=== PATIENT | female | born 1960 | race Caucasian/White ===

== ENCOUNTER → 2017-09-20 10:55 | Outpatient (CLI) | payer OTHER, SELFPAY ==
--- NOTE | 2017-09-20 | DI.MG.S_ITS ---
BILATERAL DIGITAL SCREENING MAMMOGRAM 3D/2D WITH CAD: 09/20/2017 CLINICAL: Routine screening. Family history of breast cancer. Comparison is made to exams dated: 06/01/2016 mammogram, 05/22/2015 mammogram, and 03/19/2014 mammogram - [facility]. There are scattered fibroglandular elements in both breasts. Current study was also evaluated with a Computer Aided Detection (CAD) system. No significant masses, calcifications, or other findings are seen in either breast. There has been no significant interval change. IMPRESSION: NEGATIVE There is no mammographic evidence of malignancy. A 1 year screening mammogram is recommended. This exam was interpreted at Station ID: [id number]. NOTE: For mammograms, a report in lay terms will be sent to the patient. Approximately 15% of breast malignancies will not be visualized mammographically. In the management of a palpable breast mass, a negative mammogram must not discourage biopsy of a clinically suspicious lesion. Electronically Signed By: Teddy perez/tania:09/21/2017 08:51:38 letter sent: Normal Exam ACR BI-RADS Category 1: Negative 3341F
== END ==
PROVIDERS: PCP Family Medicine; Visit Provider Family Medicine
DX: Z12.31 Encounter for screening mammogram for malignant neoplasm of breast (principal); Z80.3 Family history of malignant neoplasm of breast
CPT/HCPCS: 77063; 77067

== ENCOUNTER → 2017-12-27 10:04 | Outpatient (CLI) | payer OTHER, SELFPAY ==
--- NOTE | 2017-12-27 | DI.MRI.S_ITS ---
PROCEDURE: MR SHOULDER LT WO CON INDICATIONS: LEFT SHOULDER PAIN TECHNIQUE: Noncontrast oblique coronal T2 fast spin echo with fat saturation, oblique sagittal T1 spin echo and T2 fast spin echo with fat saturation, axial T1 spin echo and T2 fast spin echo with fat saturation through the shoulder. COMPARISON: [facility], MR, UPPER EXT.JOINT WITHOUT CONTRA, 08/26/2009, 10:59. [facility], CR, XR SHOULDER 2+ VIEWS LEFT, 12/13/2017, 9:21. FINDINGS: Image quality: Excellent. Rotator cuff: Mild T2 signal alteration throughout the supraspinatus and infraspinatus tendons at the humeral insertion site is present there is a small region of fluid signal intensity within the mid/posterior supraspinatus tendon articular surface at the humeral insertion site. The supraspinatus, infraspinatus, and subscapularis tendons otherwise appear intact throughout. Sagittal images demonstrate no muscle atrophy. Bones and bursae: No bone marrow contusions or fractures. Severe periarticular osteophyte formation at the glenohumeral joint. Severe irregular articular cartilage loss at the glenohumeral interface. Moderate acromioclavicular joint degeneration. The acromion demonstrates conventional anatomy, without an os acromiale. No pathologic subacromial-subdeltoid or subcoracoid bursal fluid is present. Capsule and soft tissues: There is diffuse degenerative glenoid labral tearing present. The long head of the biceps tendon demonstrates normal location and morphology. There is moderate fluid within the bicipital groove. The rotator interval appears normal, without fibrosis. The coracohumeral ligament is normal in thickness. IMPRESSION: 1. Supraspinatus and infraspinatus tendinopathy with small superimposed low-grade partial-thickness articular surface tear of the supraspinatus tendon. 2. Severe glenohumeral joint osteoarthritis with associated articular cartilage loss. 3. Acromioclavicular joint osteoarthritis. 4. Diffuse degenerative glenoid labral tearing. 5. Bicipital tendinitis. Dictated by: Esme Adkins M.D. on 12/27/2017 at 13:16 Approved by: Esme Adkins M.D. on 12/27/2017 at 13:20
== END ==
PROVIDERS: PCP Family Medicine; Visit Provider Orthopaedic Surgery
DX: M75.112 Incomplete rotator cuff tear or rupture of left shoulder, not specified as traumatic (principal); M25.512 Pain in left shoulder; M75.22 Bicipital tendinitis, left shoulder; M19.012 Primary osteoarthritis, left shoulder; S43.492A Other sprain of left shoulder joint, initial encounter
CPT/HCPCS: 73221

== ENCOUNTER → 2018-10-03 11:12 | Outpatient (CLI) | payer OTHER, SELFPAY ==
--- NOTE | 2018-10-03 11:13 | DI.MG.S_ITS ---
BILATERAL DIGITAL SCREENING MAMMOGRAM 3D/2D WITH CAD: 10/03/2018 CLINICAL: Routine screening. Family history of breast cancer. Comparison is made to exams dated: 09/20/2017 mammogram, 06/01/2016 mammogram, and 05/22/2015 mammogram - [facility]. There are scattered fibroglandular elements in both breasts. Current study was also evaluated with a Computer Aided Detection (CAD) system. No significant masses, calcifications, or other findings are seen in either breast. There has been no significant interval change. IMPRESSION: NEGATIVE There is no mammographic evidence of malignancy. A 1 year screening mammogram is recommended. This exam was interpreted at Station ID: [id number]. NOTE: For mammograms, a report in lay terms will be sent to the patient. Approximately 15% of breast malignancies will not be visualized mammographically. In the management of a palpable breast mass, a negative mammogram must not discourage biopsy of a clinically suspicious lesion. Electronically Signed By: Teddy perez/tania:10/03/2018 16:45:49 letter sent: Normal Exam ACR BI-RADS Category 1: Negative 3341F
== END ==
PROVIDERS: PCP Family Medicine; Visit Provider Family Medicine
DX: Z12.31 Encounter for screening mammogram for malignant neoplasm of breast (principal); Z80.3 Family history of malignant neoplasm of breast
CPT/HCPCS: 77063; 77067

== ENCOUNTER → 2019-10-13 09:27 | Outpatient (CLI) | payer OTHER, SELFPAY ==
[2019-10-13 10:48] LABS: Add Manual Diff / Slide Review NO; Basophils Absolute Auto 100 /uL (0-100); Basophils Percent Auto 1.3 % (0-2); Eosinophils Absolute Auto 100 /uL (0-450); Eosinophils Percent Auto 2.2 % (2-4); Hemoglobin 14.2 g/dL (12.0-16.0); Lymphocytes Absolute Auto 1200 /uL (1100-4500); Lymphocytes Percent Auto 21.3 % (25-40); Mean Corpuscular HGB Conc 32.4 % (30-36); Mean Corpuscular Hemoglobin 29.9 PG (26-34); Mean Corpuscular Volume 92.3 fL (80-100); Monocytes Absolute Auto 400 /uL (0-900); Monocytes Percent Auto 6.6 % (3-14); Neutrophils Absolute Auto 4000 /uL (1500-7000); Neutrophils Percent Auto 68.6 % (50-75); Platelet Count 281 X10^3/uL (150-400); Red Blood Cell Count 4.77 X10^6/uL (4.0-5.2); Red Cell Distribution Width 13.8 % (11.6-14.8); White Blood Cell Count 5.8 X10^3/uL (4.5-11.0)
[2019-10-13 10:57] LABS: Hemoglobin A1C% w Est Avg Glu 5.5 % (4.0-6.0)
[2019-10-13 11:02] LABS: Alanine Aminotransferase 25 IU/L (<35); Albumin 4.5 g/dL (3.5-5.0); Albumin Globulin Ratio 1.8 (1.0-2.8); Alkaline Phosphatase 66 U/L (38-126); Aspartate Aminotransferase 30 IU/L (14-36); BUN Creatinine Ratio 30.1 (6-22); Bilirubin Total 0.5 mg/dL (0.2-1.3); Blood Urea Nitrogen 22 mg/dL (7-17); Calcium 9.8 mg/dL (8.4-10.2); Carbon Dioxide 29 mmol/L (22-32); Chloride 104 mmol/L (98-107); Cholesterol 183 mg/dL (140-199); Estimated Glomerular Filt Rate > 60.0 mL/min (>60); Globulin 2.5 g/dL (1.7-4.1); Glucose 87 mg/dL (70-100); HDL Cholesterol 61 mg/dL (40-60); HEMOLYSIS < 15 (0-50); LDL Cholesterol Calculated 108 mg/dL (<100); Potassium 4.5 mmol/L (3.4-5.1); Sodium 139 mmol/L (137-145); Triglycerides 69 mg/dL (35-150)
== END ==
PROVIDERS: PCP Family Medicine; Referring Provider Family Medicine; Visit Provider Family Medicine
DX: Z13.0 Encounter for screening for diseases of the blood and blood-forming organs and certain disorders involving the immune mechanism (principal); Z13.1 Encounter for screening for diabetes mellitus; Z13.220 Encounter for screening for lipoid disorders; Z13.29 Encounter for screening for other suspected endocrine disorder
CPT/HCPCS: 36415; 80053; 80061; 83036; 84443; 85025

== ENCOUNTER → 2019-11-20 16:29 | Outpatient (CLI) | payer OTHER, SELFPAY ==
--- NOTE | 2019-11-20 | DI.MG.S_ITS ---
BILATERAL DIGITAL SCREENING MAMMOGRAM 3D/2D WITH CAD: 11/20/2019 CLINICAL: Routine screening. Family history of breast cancer. Comparison is made to exams dated: 10/03/2018 mammogram, 09/20/2017 mammogram, and 06/01/2016 mammogram - [facility]. There are scattered fibroglandular elements in both breasts. Current study was also evaluated with a Computer Aided Detection (CAD) system. No significant masses, calcifications, or other findings are seen in either breast. There has been no significant interval change. IMPRESSION: NEGATIVE There is no mammographic evidence of malignancy. A 1 year screening mammogram is recommended. This exam was interpreted at Station ID: [id number]. NOTE: For mammograms, a report in lay terms will be sent to the patient. Approximately 15% of breast malignancies will not be visualized mammographically. In the management of a palpable breast mass, a negative mammogram must not discourage biopsy of a clinically suspicious lesion. Electronically Signed By: Sincere ryan/tania:11/20/2019 17:49:58 letter sent: Normal Exam ACR BI-RADS Category 1: Negative 3341F
== END ==
PROVIDERS: PCP Family Medicine; Referring Provider Family Medicine; Visit Provider Family Medicine
DX: Z12.31 Encounter for screening mammogram for malignant neoplasm of breast (principal); Z80.3 Family history of malignant neoplasm of breast
CPT/HCPCS: 77063; 77067

== ENCOUNTER → 2020-02-26 09:38 | Outpatient (CLI) | payer OTHER, SELFPAY ==
--- NOTE | 2020-02-26 | DI.MRI.S_ITS ---
PROCEDURE: MR SHOULDER LT WO CON INDICATIONS: Impingement syndrome of left shoulder TECHNIQUE: Noncontrast oblique coronal T2 fast spin echo with fat saturation, oblique sagittal T1 spin echo and T2 fast spin echo with fat saturation, axial T1 spin echo and T2 fast spin echo with fat saturation through the shoulder. COMPARISON: [facility], MR, MR SHOULDER LT WO CON, 12/27/2017, 10:54. FINDINGS: Image quality: Excellent. Rotator cuff: Tendinosis and moderate grade articular and bursal surface partial thickness tear involving distal supraspinatus is seen at its insertion on humeral head extending to musculotendinous junction. Distal infraspinatus tendinosis is seen. Tendinosis and low-grade partial-thickness tear involving superior fibers of distal subscapularis is noted. No full-thickness rotator cuff tendon rupture. Sagittal images demonstrate no significant muscle atrophy. Bones and bursae: There is no fracture or dislocation. Moderate acromioclavicular joint osteoarthritic changes are seen with small to moderate amount of fluid distending joint capsule. The acromion demonstrates conventional anatomy, without an os acromiale. Small subacromial subdeltoid bursal fluid is seen. Moderate to severe glenohumeral joint osteoarthritic changes also seen with significant joint space narrowing, subchondral sclerosis and mild edema and prominent inferior osteophyte formation. Capsule and soft tissues: In the absence of intra-articular contrast, there is global signal abnormality throughout anterior labrum concerning for extensive anterior labral tear. The glenohumeral ligaments appear intact. The long head of the biceps tendinosis and low to moderate grade partial-thickness tear is seen. The rotator interval appears normal, without fibrosis. The coracohumeral ligament is normal in thickness. IMPRESSION: 1. Moderate acromioclavicular joint and glenohumeral joint osteoarthritic changes as above. Small to moderate amount of joint effusion. Small subacromial subdeltoid bursal fluid. 2. Tendinosis and moderate grade articular and bursal surface partial thickness tear involving distal supraspinatus extending to musculotendinous junction. Distal infraspinatus and subscapularis tendinosis. No full-thickness rotator cuff tendon rupture. 3. Suggestion of extensive anterior labral tear. 4. Proximal intra-articular portion of long head of biceps tendinosis and moderate grade partial-thickness tear. Dictated by: Berto Baker M.D. on 02/26/2020 at 11:38 Approved by: Berto Baker M.D. on 02/26/2020 at 11:45
== END ==
PROVIDERS: PCP Family Medicine; Referring Provider Orthopaedic Surgery; Visit Provider Orthopaedic Surgery
DX: M75.42 Impingement syndrome of left shoulder (principal); M19.012 Primary osteoarthritis, left shoulder
CPT/HCPCS: 73221

== ENCOUNTER → 2020-04-19 13:40 | Outpatient (CLI) | payer OTHER, SELFPAY ==
[2020-04-19 16:26] LABS: Add Manual Diff / Slide Review NO; Basophils Absolute Auto 100 /uL (0-100); Eosinophils Absolute Auto 200 /uL (0-450); Eosinophils Percent Auto 2.4 % (2-4); Hematocrit 42.1 % (36-46); Hemoglobin 13.7 g/dL (12.0-16.0); Lymphocytes Absolute Auto 1900 /uL (1100-4500); Lymphocytes Percent Auto 27.4 % (25-40); Mean Corpuscular HGB Conc 32.5 % (30-36); Mean Corpuscular Hemoglobin 29.8 PG (26-34); Mean Corpuscular Volume 91.6 fL (80-100); Monocytes Absolute Auto 400 /uL (0-900); Monocytes Percent Auto 6.1 % (3-14); Neutrophils Absolute Auto 4300 /uL (1500-7000); Neutrophils Percent Auto 63.1 % (50-75); Platelet Count 253 X10^3/uL (150-400); Red Cell Distribution Width 13.4 % (11.6-14.8); White Blood Cell Count 6.9 X10^3/uL (4.5-11.0)
[2020-04-19 16:37] LABS: BUN Creatinine Ratio 27.9 (6-22); Blood Urea Nitrogen 19 mg/dL (7-17); Calcium 9.6 mg/dL (8.4-10.2); Carbon Dioxide 31 mmol/L (22-32); Chloride 105 mmol/L (98-107); Estimated Glomerular Filt Rate > 60.0 mL/min (>60); Glucose 81 mg/dL (70-100); HEMOLYSIS < 15 (0-50); Potassium 3.7 mmol/L (3.4-5.1); Sodium 140 mmol/L (137-145)
== END ==
PROVIDERS: PCP Family Medicine; Referring Provider Family Medicine; Visit Provider Family Medicine
DX: Z01.810 Encounter for preprocedural cardiovascular examination (principal); Z01.812 Encounter for preprocedural laboratory examination
CPT/HCPCS: 36415; 80048; 85025; 93005; 93010

== ENCOUNTER → 2020-04-22 15:28 | Outpatient (CLI) | payer OTHER, SELFPAY ==
[2020-04-22 16:38] LABS: COVID19 -Nasal RAPID Negative (Negative)
== END ==
PROVIDERS: PCP Family Medicine; Visit Provider Physician Assistant
DX: Z20.822 Contact with and (suspected) exposure to COVID-19 (principal)
CPT/HCPCS: 87635

== ENCOUNTER 2020-04-25 09:53 | Inpatient (IN) | payer OTHER, SELFPAY ==
[2020-04-25] VITALS (13 sets, daily range): BP systolic 97–127; BP diastolic 47–79; PULSE 72–101; RESP 15–92; TEMP 36.1–36.9; O2SAT 18–99; BMI 32.3
--- NOTE | 2020-04-25 10:27 | DI.RAD.S_ITS ---
PROCEDURE: XR SHOULDER LT MIN 2V INDICATIONS: post op TSA TECHNIQUE: 2 views of the shoulder were acquired. COMPARISON: None. FINDINGS: Bones: Patient is status post left shoulder arthroplasty. Shoulder alignment is anatomic. No fractures or dislocations. No suspicious bony lesions. Visualized ribs appear intact. Soft tissues: There are expected postsurgical changes seen in left shoulder soft tissue. IMPRESSION: Postop changes from left shoulder arthroplasty with anatomic alignment. Dictated by: Berto Baker M.D. on 04/25/2020 at 14:51 Approved by: Berto Baker M.D. on 04/25/2020 at 14:52
[2020-04-25] MEDS: ACETAMINOPHEN 325 MG TABLET 975 MG PO ×2 (11:15→22:25)
[2020-04-25] MEDS: MELOXICAM 7.5 MG TABLET 15 MG PO (11:15)
[2020-04-25] MEDS: LACTATED RINGERS 1,000 ML 42 ML IV ×2 (11:16→14:17)
[2020-04-25] MEDS: PREGABALIN 75 MG CAPSULE PO (11:16)
[2020-04-25] MEDS: VANCOMYCIN 1,000 MG/200 ML PIGGYBACK 200 MG IV ×2 (11:19→22:14)
--- NOTE | 2020-04-25 11:22 | PM.PREOP ---
Pre-operative Note COVID-19 COVID-19 status: Negative Result date/Date tested (Pos, Neg/Pending): 04/23/20 Interval Note History & Physical reviewed/Exam performed by Physician: Yes Changes to H&P: No
[2020-04-25] MEDS: MIDAZOLAM 2 MG/2 ML VIAL IV (11:45)
--- NOTE | 2020-04-25 11:56 | SUR.PREOP ---
Block start time [1149] . Monitoring initiated and maintained throughout procedure. Oxygen and medications given per anesthesiologist instructions. Patient remained stable throughout procedure, no adverse reactions noted. Block end time [1153].
[2020-04-25] MEDS: GENTAMICIN 200 MG in SODIUM CHLORIDE 0.9% 100 ML 105 ML IV (12:23)
--- NOTE | 2020-04-25 12:36 | SUR.OPER ---
Beach chair with skytron shoulder positioner. Lower body on padded OR bed. Head in foam padded head cradle, secured with straps. Non-operative arm secured <90 degrees abduction. Pillow under knees. Safety belt at thigh. Cloth tape over blanket over lower legs.
[2020-04-25] MEDS: LIDOCAINE 1% W/EPI 20 ML INJ (12:44)
[2020-04-25] MEDS: BUPIVACAINE 0.25% W/ EPI (PF) 10 ML VIAL 20 ML INJ (12:49)
--- NOTE | 2020-04-25 13:51 | P.PCN_ITS ---
Procedures Date/Time Date of procedure: 04/25/20 Time of procedure: 11:50 Nerve Block Time out performed: Yes Local anesthetic used: other (15mL 0.5opivacaine, 5mL 2* idocaine) Location of anesthetic used: interscalene Amount of anesthesia used (mL): 20 Nerve blocks: brachial plexus (interscalene) Procedure successful: Yes Patient tolerated procedure: well Complications: none Additional comments: Brachial plexus nerve block for post operative pain management. Risks and benefits discussed, including bleeding, infection, intravascular injection, nerve damage, block failure. Standard ASA monitors, NC O2. Pt supine. Chloroprep site preparation, sterile technique. Brachial plexus identified with US guidance, traced from supraclavicular to interscalene. 1mL 2% lidocaine skin wheal. 22g x 50mm Pajunk advanced with in-plane US guidance to brachial plexus. Negative aspiration. LA injected with intermittent negative aspiration. Good LA spread noted on US. No pain, no paraesthesia. Pt tolerated procedure well. Vital signs stable.
--- NOTE | 2020-04-25 14:05 | P.OP_ITS ---
Operative Date/Time/Diagnoses Date of procedure: 04/25/20 Time of procedure: 14:05 Pre-op diagnosis: Left end-stage arthritis shoulder Post-op diagnosis: same Procedure & Clinicians Procedure: Left total shoulder arthroplasty Same procedure as scheduled: Yes Indications: Left end-stage arthritis shoulder Surgeon: Arsenio Wellington Internal Medicine Physician Assistant: Rupa Rothman Click Yes if Unassisted: No Anesthesia Type: General and Peripheral nerve block Operative Notes Findings: End-stage arthritic changes to the glenohumeral joint with complete loss of cartilage and anterior and inferior osteophytes around the humeral head. No sign of any high-riding humeral head no sign of any full-thickness rotator cuff tear. Closure Type: primary Specimen(s): none sent Applied: implant(s) (Arthrex medium glenoid with a 47 x 20 eclipse humeral head a 47 trunnion and a medium cage screw) Estimated Blood Loss (mL): 100 Procedure in detail: On date of service, Patient was met in the holding area. The operative site was signed and witnessed by the OR staff. The surgeries once again discussed with the patient and any remaining questions they had were answered fully. Patient was taken back to the operating theater and placed on the operating table in a supine position. Great care was taken to ensure that all bony prominences were properly padded. Patient was then placed into the beach chair position. The head and neck were properly positioned and secured. A timeout was performed verifying patient's name, procedure, and the operative site. The upper extremity was then prepped and draped in the normal sterile fashion. Previously, the bony anatomy and incision were marked out as well as injected with Marcaine with epinephrine. A deltopectoral approach was performed. 10 blade was used to incise the skin and fascial tissue. A deep knife was used to continue sharp dissection until the cephalic vein was visualized. The cephalic vein was dissected free allowing us to expose the deltopectoral interval. This interval was then developed. A Masters elevator was used to free up the deltoid of any scarring both superficially as well as deeply. The vein and the deltoid were taken laterally while the pectoralis was taken medially. This gave us good visualization of the strap muscles. The clavipectoral fascia was removed and the strap muscles were then retracted medially with the pectoralis. This gave us stabilization of the subsca pularis. The circumflex vessels were ligated and the subscapularis was sharply excised off the lesser tuberosity and then tagged. Once the subscapularis was released we're able to dislocate the shoulder. Patient had end-stage arthritic changes to the humeral head as well as the glenoid with large osteophytes anterior inferiorly as well as posteriorly. A Ronger was then used to remove the osteophytes. Next, cutting guide was placed and a saw was used to remove the humeral head. Once the head was removed it was templated. A trunnion with size and impacted on the humeral cut surface center impactor was placed and then passed it into place. S this was then removed. A protector placed for the osteotomy was then placed and and we turned our attention back to the subscapularis as well as the glenoid. The subscapularis was freed up and a 360? fashion. The degenerative anterior and inferior capsular tissue was removed. This was followed by removing the degenerative labral tissue from around the glenoid as well as the biceps insertion. This gave us good visualization of the glenoid. Glenoid trials were used until we found the appropriate fit and curvature. Next the center hole was drilled followed by reaming of the glenoid. The wound was copiously irrigated after reaming. Next the pegs were drilled and a trial glenoid was impacted into place. Once we were satisfied with the preparation of the glenoid, the final component was cemented into place. This was followed by impaction. We Return to our attention back to the humerus. The protector plate was removed. The 47 mm trunnion was impacted into place in the cage screw was inserted to the appropriate depth and tightness. next trial heads were trialed and a 47 x 20 gave us the best fit and stability. Shoulder was taken through range of motion and had very good stability with external rotation and internal rotation with the arm abducted to 90? as well as forward flexion and external rotation and internal rotation with the arm at the side. Bone tunnels were made into the humeral neck. #2 FiberWire were passed through the bone tunnels for eventual subscapularis repair. The final head were impacted into place and the shoulder was reduced. It was taken through range of motion and was felt to be stable in both posterior translation as well as external and internal rotation with abduction. The subscapularis was repaired back to the lesser tuberosity through the bone tunnels. This was then reinforced with soft tissue repair. Part of the rotator interval was then closed. A drain was placed and the rest of the wound was closed in a layered fashion. The shoulder was then cleaned dried and dressed and the patient was taken to the PACU in stable condition. Patient will follow our postoperative protocol for total shoulder arthroplasty. Complications: none Post-operative Condition: stable Disposition: PACU Plan for aftercare: Patient follow our postoperative protocol for total shoulder arthroplasty
--- NOTE | 2020-04-25 15:42 | SUR.PHASEI ---
Pt transported to room 212 in stable condition. Bedside are report given to RENARD Anglin.
--- NOTE | 2020-04-25 15:53 | PT-IP ANOTE ---
Received PT orders at 1425 and reviewed chart but pt was not on the floor yet from PACU. Communicated with surgeon to clear the bedrest order. Pt arrived ~1545 but had not been assessed yet by nursing. Will see pt in the AM for PT evaluation.
[2020-04-25] MEDS: LACTATED RINGERS 1,000 ML 125 ML IV (16:38)
[2020-04-25] MEDS: ZOLPIDEM 5 MG TABLET PO (22:14)
[2020-04-25] MEDS: DOCUSATE 100 MG CAPSULE PO (22:14)
[2020-04-25] MEDS: HYDROCODONE/ACET 5/325 TABLET 2 TAB PO (23:36)
[2020-04-26] MEDS: OXYCODONE IR 10 MG TABLET PO ×3 (02:22→08:56)
--- NOTE | 2020-04-26 03:52 | PC.NURSE ---
At approx 0230, pt reported pain and swelling at IV site. Infusion of LR @ 125 stopped, IV site determined to be infiltrated. New IV insertion attempted x2, provider contacted and OKd d/c fluids and no IV access.
[2020-04-26 04:40] VITALS: BP 104/57; PULSE 72; RESP 18; TEMP 36.4; O2SAT 96
[2020-04-26 05:28] LABS: Hematocrit 35.5 % (36-46); Hemoglobin 11.8 g/dL (12.0-16.0); Mean Corpuscular HGB Conc 33.2 % (30-36); Mean Corpuscular Hemoglobin 29.7 PG (26-34); Mean Corpuscular Volume 89.5 fL (80-100); Platelet Count 241 X10^3/uL (150-400); Red Blood Cell Count 3.97 X10^6/uL (4.0-5.2); Red Cell Distribution Width 13.2 % (11.6-14.8); White Blood Cell Count 10.5 X10^3/uL (4.5-11.0)
--- NOTE | 2020-04-26 07:17 | PM.DS.1 ---
History of Present Illness History of Present Illness Date Patient Seen: 04/26/20 Time Patient Seen: 07:17 Chief complaint: INPT Narrative: Pain is [id number]. Denies fever chills. No nausea vomiting. Patient has her home to assist her. Otherwise without complaints. Discharge Providers Provider Date of admission: 04/25/20 09:53 Discharge Date: 04/26/20 Primary care physician: Gemini Deleon MD Consults: 04/25/20 14:00 Consult to Discharge Planning Routine Comment: Consult to Physical Therapy Evaluate & Treat Comment: Physician Instructions: Evaluate and Treat Consult to Respiratory Therapy Evaluate & Treat Comment: Physician Instructions: Evaluate and treat Discharge provider: Toney Calixto PA-C Summary Hospital Course Discharge Diagnosis: Left end-stage arthritis shoulder Hospital Course: Procedure: Left total shoulder arthroplasty Same procedure as scheduled: Yes Indications: Left end-stage arthritis shoulder Surgeon: Arsenio Wellington [employer] Custodian: Rupa Rothman Click Yes if Unassisted: No Anesthesia Type: General and Peripheral nerve block Operative Notes Findings: End-stage arthritic changes to the glenohumeral joint with complete loss of cartilage and anterior and inferior osteophytes around the humeral head. No sign of any high-riding humeral head no sign of any full-thickness rotator cuff tear. Closure Type: primary Specimen(s): none sent Applied: implant(s) (Arthrex medium glenoid with a 47 x 20 eclipse humeral head a 47 trunnion and a medium cage screw) Estimated Blood Loss (mL): 100 Patient status post left total shoulder arthroplasty. Patient is stable. Discharge home today after physical therapy put Status at Discharge Cognitive/behavioral status at discharge: at baseline, oriented Functional status at discharge: independent ambulation Overall status at discharge: patient is progressing back to baseline Time Spent with Patient Time spent: Less than 30 minutes Exam Vital Signs (past 8 hours): - 04/25/20 23:35 04/25/20 23:55 04/26/20 04:40 Temperature 97.9 F 97.6 F Pulse Rate 89 72 Respiratory Rate 17 18 Blood Pressure 97/47 L 108/69 104/57 L Pulse Oximetry 96 96 Oxygen Delivery Method Room Air Oxygen Flow Rate 0 Narrative Exam Narrative: 59-year-old female resting comfortably in bed in no apparent distress. Left shoulder dressing is clean, dry and intact. Drain output yesterday 130 mL. Sensation grossly intact distal left upper extremity. Motor functions intact distal left upper extremity. Objective Labs Result Diagrams: 04/26/20 05:15 Labs: Laboratory Results - last 24 hr 04/26/20 05:15 WBC 10.5 RBC 3.97 L Hgb 11.8 L Hct 35.5 L MCV 89.5 MCH 29.7 MCHC 33.2 RDW 13.2 Plt Count 241 PFSH Medical History Anesthesia Arthritis of glenohumeral joint Back pain (~2006) Migraines Normal colonoscopy (~2012) Partial tear of rotator cuff Shoulder impingement Shoulder pain (~2007) Surgical procedure planned (~2012) Surgical History History of carpal tunnel repair History of tonsillectomy Hx of cervical spinal arthrodesis Status post breast lumpectomy Status post breast reduction Status post hysterectomy Status post knee surgery Family History Father Age: 87 Emphysema/COPD Cancer Diabetes mellitus Heart disease Mother Age: 81 Diabetes mellitus Grandmother Breast cancer Social History household members: spouse and children Smoking Status: Former smoker alcohol intake: current Discharge Assessment & Plan Assessment and Plan Assessment: Postop day 1 status post left total shoulder arthroplasty. Patient progressing as expected. Plan of Treatment: Discharge home today in stable condition after physical therapy. Discharge Plan Discharge Plan Patient Disposition: Home Discharge orders & Medications Prescriptions: New acetaminophen 325 mg Tablet 975 mg PO TID PRN (Reason: Headache) Qty: 60 RF: 0 oxycodone 10 mg Tablet 10 mg PO Q3HR PRN (Reason: Pain, Severe (7-10)) Qty: 60 RF: 0 Continued fluticasone propionate 50 mcg/actuation spray,suspension 2 spray NASAL DAILY RF: 0 rizatriptan 10 mg tablet See Rx Instructions PO .COMPLEX Qty: 30 RF: 0 diclofenac sodium 75 mg tablet,delayed release (DR/EC) 75 mg PO BID Qty: 180 RF: 3 lamotrigine [Lamictal XR] 100 mg tablet extended release 24hr 100 mg PO QDAY Qty: 90 RF: 3 desonide 0.05 % lotion 0.05 % Topical DAILY PRN (Reason: itching) Qty: 60 RF: 5 gabapentin 300 mg capsule See Rx Instructions .ROUTE .COMPLEX Qty: 90 RF: 5 clobetasol 0.05 % ointment 1 applictn TOP BID Qty: 30 RF: 5 clobetasol 0.05 % solution 0.05 % Topical BID Qty: 50 RF: 5 estradiol [Estrace] 0.01 % (0.1 mg/gram) cream 1 gram VAG 3XW Qty: 42.5 RF: 4 fexofenadine 180 mg Tablet 180 mg PO DAILY RF: 0 diphenhydramine HCl [Benadryl] 25 mg Capsule 50 mg PO BEDTIME RF: 0 Follow up/Referrals: Gemini Deleon MD [Primary Care Provider] - Arsenio Wellington MD [Physician] - (Two weeks) Diet/Activity/Treatments Diet: Diet as Tolerated Activity: Per total shoulder protocol Cold/Heat Therapy: Ice to shoulder as needed Skin/Wound/Dressing Care Report to your healthcare provider any signs of infection, such as:: chills, fever, increased pain, unusual drainage and unusual redness Dressing: Keep clean and dry Visit Report/Discharge Packet Instructions: DI for Prescription Opioid Use, DI for Shoulder Replacement Stand Alone Forms: Surgery Discharge Discharge Data Primary Care Provider: Gemini Deleon Quality VTE Deep Vein Thrombosis/Pulmonary Embolism Present on Admission: No
[2020-04-26 07:35] VITALS: BP 118/60; PULSE 72; RESP 16; TEMP 36.9; O2SAT 99
[2020-04-26] MEDS: DOCUSATE 100 MG CAPSULE PO (08:56)
[2020-04-26] MEDS: GABAPENTIN 300 MG CAPSULE PO (08:56)
[2020-04-26] MEDS: LORATADINE 10 MG TABLET PO (08:56)
[2020-04-26] MEDS: INFLUENZA VACCINE 0.5 ML SYRINGE IM (09:03)
--- NOTE | 2020-04-26 10:41 | PT.IIE ---
Current Diagnoses Primary osteoarthritis, left shoulder (04/25/20) Unspecified osteoarthritis, unspecified site (04/25/20) Impingement syndrome of left shoulder (04/25/20) Surgery Performed Operation Date: 04/25/20 11:45 Actual Procedures p Total Shoulder Arthroplasty(Left) - Arsenio Wellington MD Surgical History (Last Reviewed 04/26/20 @ 07:20 by Toney Calixto PA-C) History of carpal tunnel repair History of tonsillectomy Hx of cervical spinal arthrodesis Status post breast lumpectomy Status post breast reduction Status post hysterectomy Status post knee surgery Medical History (Last Reviewed 04/26/20 @ 07:20 by Toney Calixto PA-C) Anesthesia Arthritis of glenohumeral joint Back pain (~2006) Migraines Normal colonoscopy (~2012) Partial tear of rotator cuff Shoulder impingement Shoulder pain (~2007) Surgical procedure planned (~2012) Physical Therapy Inpatient Evaluation/Re-Eval M1 PT/OT-IP Prior Functional Status Start: 04/25/20 14:36 Freq: NEEDED Status: Active Protocol: Document 04/26/20 10:26 (Rec: 04/26/20 10:41 [id number]) Medical Review Prior Functional Status Medical History Reviewed Yes Diet/Fluid Consistency Regular Communication no deficits noted able to make needs known Mobility and Gait independent for all mobility. unable to lift arm >90 degrees . Activities of Daily Living and IADL's difficulty reaching behind her back and put bra on/ jacket on. Hard to pull pants up. Significant pain during sleep Social History Household Members spouse,children Living Arrangements House Number of Floors (Floors) One Floor Number of Stairs To Enter/Railing? 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 They both work proofer but will be available to assist fully during weekends. Pt also has a neighbor to check on her if needed. M2 PT-IP Current Condition Start: 04/25/20 14:36 Freq: NEEDED Status: Active Protocol: Document 04/26/20 10:26 (Rec: 04/26/20 10:41 [id number]) Physical Therapy Current Condition Current Condition Evaluation Date 04/26/20 Treatment Diagnosis L TSA, difficulty for self care Onset Date 04/25/20 Precautions Shoulder Precautions Sling,PROM,Internal Rotation to Body,No External Rotation, No Abduction,Forward Flexion to 90 degrees,Pendulums Weight Bearing Status Weight Bearing Status Non-Weight Bearing M3 PT-IP Subjective Start: 04/25/20 14:36 Freq: NEEDED Status: Active Protocol: Document 04/26/20 10:26 (Rec: 04/26/20 10:41 [id number]) Subjective Physical Therapy Visit Type Type Initial Evaluation Visit Start Time 09:22 Visit Stop Time 09:50 Total Visit Minutes 28 Notes 0 Number of COMMERCIAL AIRLINE PILOT Visits 0 Physical Therapy Visit Comments Patient Comments Isabella getting up to bathroom couple times already Patient Goals to return home with family asssitance M4 PT-IP Mobility and Gait Start: 04/25/20 14:36 Freq: NEEDED Status: Active Protocol: Document 04/26/20 10:26 (Rec: 04/26/20 10:41 [id number]) PT-Bed Mobility Assessment Supine to Sit Supine to Sit Independent Sit to Supine Sit to Supine Independent Scooting Scooting to Edge of Bed Independent PT-Transfer Assessment Sit to and From Stand Sit to and from Stand Independent Equipment Transfer Assistive Device None Orthotic/Prosthetic Devices or Brace: No Transfers Transfer Destination Bed,Chair Transfer Technique Stand Step Pivot Transfer Ability Level of Assist Standby Assistance,Use of Upper Extremities Comments Mobility Comments pt was in bed upon PT arrival. C/o L shoulder pain 6/10 but agreeable to mobilize with PT. BP at 110/66. Pt completed supine to long sit followed by pivoting to R side of EOB independently. She stood up safely witohut UE push off. Then walked to sink counter for armsling fitting. Pt then c/o weakness/ nausea and requested to sit in chair. She rested 2 mins BP at 103/54 and was able to cont assessment. pt stood up then walked to hallway indepednently and completed 3 JASMINE with R rail safely. She then returned to room and requested to rest in bed d/t slight nausea. Call light placed within raech. notified RN. Gait Assessment Gait Gait Assistance Required: Independent Distance (Feet) 120 Able to Maintain Weight Bearing Status Yes During Gait Assistive Devices Assistive Device None Orthotic/Prosthetic Devices or Brace: Yes Gait Deviations General Gait Pattern Within Normal Limits Comments Gait Comments see mobility comments. Stair Climbing Assessment Evaluation Level of Assist On Stairs Independent Devices Stair Climbing Assistive Devices Right Railing Technique/Endurance Stair Climbing Direction Ascend and Descend Stair Climbing Technique Step Over Step Number of Steps Climbed 3 Query Text: Stair Climbing Set # Repetitions (reps) 1 PT-Balance Assessment Sitting Balance and Reactions Static Sitting Balance Ability Normal Dynamic Sitting Balance Ability Normal Standing Balance and Reactions Static Standing Balance Ability Normal Dynamic Standing Balance Ability Normal M5 PT-IP Objective Assessments Start: 04/25/20 14:36 Freq: NEEDED Status: Active Protocol: Document 04/26/20 10:26 (Rec: 04/26/20 10:41 [email or web address]) Orientation Orientation/Cognition Level of Alertness Alert Orientation Name,Age,Birthday,Month,Date, Year,Day of Week,Place, Situation Language Function Ability No Deficits Noted Safety Awareness Understands Safety Issues Memory Description No Deficits Noted Gross Range of Motion Upper Extremity ROM Assessment Left Impaired Impairments wrist , finger ROM = WNL Lower Extremity ROM Assessment Within Functional Limits Strength Upper Extremity Strength Assessment Left Impaired Wrist 4/5 Hand 4/5 Lower Extremity Strength Assessment Within Functional Limits Coordination Assessment Gross Coordination Gross Coordination WNL Sensation Assessment Sensation Gross Sensation WNL Muscle Tone Muscle Tone WNL Yes M6 PT-IP Treatment Start: 04/25/20 14:36 Freq: NEEDED Status: Active Protocol: Document 04/26/20 10:26 (Rec: 04/26/20 10:41 [email or web address]) Physical Therapy Treatment Exercises Exercises Shoulder Pendulums,Elbow Flexion/Extension,Wrist ROM, Hand ROM Education Education Provided Precautions,Weight Bearing Status,Post-Op Packet,Safety M7 PT-IP Assessment and Plan Start: 04/25/20 14:36 Freq: NEEDED Status: Active Protocol: Document 04/26/20 10:26 (Rec: 04/26/20 10:41 [email or web address]) PT Summary Assessment and Plan Potential Rehabilitation Potential Excellent Status of Condition at Evaluation Stable Summary Impairments Pain,ROM,Strength,Activity Tolerance Progress Towards Goals Safe For Discharge Assessment Summary This is a 59yo female s/p POD 1 L TSA. 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 independent for all mobility and ADLS/IADLS. CLOF= mobility = WFL, and educated pt post op protocol and therex. Pt completed all rehab goals but does feel nausea during session. Notified RN. Expect pt to DC home with family assistance. Frequency of Treatment Frequency Of Treatment Discharge Recommendations To Nursing Amount of Assist Needed Independent Discharge Recommendations PT Discharge Recommendations Home with Assistance, Outpatient PT Transportation Needs at Discharge Private Vehicle
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
--- NOTE | 2020-04-26 12:47 | PC.NURSE ---
Patient is discharging home now. Given percolone and helpful. Aquacel dressing cdi, with sling in place. here and going to take patient home. Paperwork gone over with both.
== END 2020-04-26 13:15 | disposition home or self-care (01) | DRG 483 ==
PROVIDERS: Admitting Provider Orthopaedic Surgery; PCP Family Medicine; Referring Provider Orthopaedic Surgery; Visit Provider Orthopaedic Surgery
PROC: 0RRK0JZ Replacement of Left Shoulder Joint with Synthetic Substitute, Open Approach (ICD-10-PCS; CPT 23472; principal; 2020-04-25 11:45)
DX: M19.112 Post-traumatic osteoarthritis, left shoulder (principal); M75.42 Impingement syndrome of left shoulder; Z87.891 Personal history of nicotine dependence
CPT/HCPCS: 36415; 64450; 73030; 85027; 90471; 90656; 97161; C1776; J1100; J2250; J2405; J2704; J3010; Q2038

== ENCOUNTER → 2021-01-27 08:07 | Outpatient (CLI) | payer OTHER, SELFPAY ==
[2020-04-25 10:04] VITALS: BMI 32.3
[2021-01-27 17:13] LABS: COVID19 -Nasal RAPID Negative (Negative)
== END ==
PROVIDERS: PCP Family Medicine; Referring Provider Obstetrics & Gynecology; Visit Provider Obstetrics & Gynecology
DX: Z20.822 Contact with and (suspected) exposure to COVID-19 (principal); Z01.812 Encounter for preprocedural laboratory examination
CPT/HCPCS: 87635

== ENCOUNTER 2021-01-28 12:16 | Day surgery (SDC) | payer OTHER, SELFPAY ==
[2020-04-25 10:04] VITALS: BMI 32.3
[2021-01-27 08:21] VITALS: BMI 34.5
[2021-01-28] VITALS (17 sets, daily range): BP systolic 89–127; BP diastolic 53–87; PULSE 62–92; RESP 10–22; TEMP 36.1–37.4; O2SAT 91–98; BMI 33.6
--- NOTE | 2021-01-28 12:38 | SUR.OPER ---
Lithotomy on padded OR bed, head on pillow, arms secured on padded arm boards at <90 degrees abduction. Legs secured in padded yellow fins stirrups.
[2021-01-28] MEDS: LACTATED RINGERS 1,000 ML 42 ML IV ×2 (12:42→14:11)
--- NOTE | 2021-01-28 13:09 | PM.PREOP ---
Pre-operative Note COVID-19 COVID-19 status: Negative Result date/Date tested (Pos, Neg/Pending): 01/27/21 Interval Note History & Physical reviewed/Exam performed by Physician: Yes Changes to H&P: No
[2021-01-28] MEDS: CEFAZOLIN 1 GM VIAL 2 GM IV (13:34)
[2021-01-28] MEDS: BUPIVACAINE 0.5% (PF) 30 ML, EPINEPHrine 0.15 MG INJ (13:36)
[2021-01-28] MEDS: SODIUM CHLORIDE 0.9% 50 ML INJ (13:42)
--- NOTE | 2021-01-28 14:41 | PM.OP.1 ---
Operative Date/Time/Diagnoses Date of procedure: 01/28/21 Time of procedure: 14:42 Pre-op diagnosis: Vaginal wall prolapse post hysterectomy Post-op diagnosis: same Procedure & Clinicians Procedure: Anterior and posterior repair with perineoplasty Same procedure as scheduled: No (No sacrospinous ligament fixation needed has vaginal cuff was well supporte) Indications: Symptomatic vaginal wall prolapse post hysterectomy Surgeon: Marisol Shore Click Yes if Unassisted: Yes Anesthesia Type: General Operative Notes Findings: Mild cystocele, rectocele with gaping introitus, no enterocele, vaginal cuff well supported Closure Type: primary Specimen(s): none sent Applied: catheter (Malave) and other (Vaginal packing) Estimated Blood Loss (mL): 50 Blood products transfused: none Procedure in detail: Patient was brought to the operating room where she underwent general anesthesia. She was placed in low Yellofin stirrups and prepped and draped in the usual sterile fashion. Warming was in place. 2 g of Ancef were in prior to beginning of the case. Pulsatile stockings were in place and functional. A check system was reviewed with the staff in the room prior to beginning the case. A non latex Malave catheter was placed. The area of the cystocele and the rectocele was injected with a dilute solution of Marcaine with epinephrine. Incision was made over the cystocele with a scalpel. Dissection was undertaken laterally with sharp and blunt dissection. The cystocele caliber was decreased with a pursestring suture of 2 0 Vicryl. Plicating sutures of 0 Vicryl suture were placed. The vaginal incision was repaired with running 2 0 Vicryl suture. Next a wedge-shaped section of tissue was taken out of the posterior fourchette with a scalpel. An incision was made over the rectocele with a scalpel. Dissection was undertaken laterally. Plication sutures with 0 Vicryl were placed followed by a layer of 2 0 Vicryl plicating sutures. The incision was closed with 2 0 Vicryl suture building up the perineal body. Vaginal packing was placed. Patient went to recovery room in good condition. Complications: none Post-operative Condition: stable Disposition: Acute Care Plan for aftercare: Patient will have Malave catheter and packing removed in the morning and then home after postvoid residual check and patient fully recovered from anesthesia
--- NOTE | 2021-01-28 15:06 | SUR.PHASEI ---
report called to RENARD Hazel
[2021-01-28] MEDS: INFLUENZA VACCINE QIV 0.5 ML SYRINGE IM (16:18)
[2021-01-28] MEDS: LACTATED RINGERS 1,000 ML 100 ML IV (16:18)
[2021-01-28] MEDS: ZOLPIDEM 5 MG TABLET PO (21:36)
[2021-01-28] MEDS: KETOROLAC 30 MG/ML VIAL IV (21:36)
[2021-01-28] MEDS: DOCUSATE 100 MG CAPSULE 200 MG PO (21:36)
[2021-01-29 00:26] VITALS: BP 103/54; PULSE 74; RESP 18; TEMP 36.1; O2SAT 93
[2021-01-29] MEDS: LACTATED RINGERS 1,000 ML 100 ML IV (01:56)
[2021-01-29] MEDS: KETOROLAC 30 MG/ML VIAL IV ×2 (03:15→09:16)
[2021-01-29 05:00] VITALS: BP 110/62; PULSE 66; RESP 18; TEMP 36.6; O2SAT 98
--- NOTE | 2021-01-29 06:56 | PM.DS.1 ---
History of Present Illness History of Present Illness Date Patient Seen: 01/29/21 Time Patient Seen: 06:57 Chief complaint: OPB Narrative: Postoperative day 1 anterior and posterior repair with perineoplasty Discharge Providers Provider Discharge Date: 01/29/21 Primary care physician: Gemini Deleon MD Discharge provider: Marisol Shore MD Summary Hospital Course Discharge Diagnosis: Vaginal wall prolapse post hysterectomy Hospital Course: Patient underwent an anterior and posterior repair with perineoplasty on 01/18/2021. She denies any nausea. Pain is tolerable. Status at Discharge Cognitive/behavioral status at discharge: oriented Functional status at discharge: independent ambulation Overall status at discharge: patient is progressing back to baseline Exam Vital Signs (past 8 hours): - 01/28/21 23:00 01/29/21 00:26 01/29/21 05:00 Temperature 97 F L 97.8 F Pulse Rate 74 66 Respiratory Rate 18 18 Blood Pressure 103/54 L 110/62 Pulse Oximetry 93 93 98 Oxygen Delivery Method Room Air Oxygen Flow Rate 0 Narrative Exam Narrative: Abdomen is soft, nontender. Packing was removed and there was not significant bleeding. There is some ecchymoses on the perineum. Extremities nontender. FOR[facility]LY [facility], [facility] Medical History Anesthesia Arthritis of glenohumeral joint Back pain (~2006) Migraines Normal colonoscopy (~2012) Partial tear of rotator cuff Shoulder impingement Shoulder pain (~2007) Surgical procedure planned (~2012) Surgical History (Updated 01/28/21 @ 14:36 by Marisol Shore MD) History of carpal tunnel repair History of prolapse of bladder History of shoulder replacement History of tonsillectomy Hx of bladder repair surgery Hx of cervical spinal arthrodesis Hx of cholecystectomy Status post breast lumpectomy Status post breast reduction Status post hysterectomy Status post knee surgery Family History Father Age: 87 Emphysema/COPD Cancer Diabetes mellitus Heart disease Mother Age: 81 Diabetes mellitus Hypertension Grandmother Breast cancer Social History marital status: household members: spouse and children occupational status: employed Smoking Status: Former smoker alcohol intake: current substance use type: does not use Discharge Assessment & Plan Assessment and Plan Assessment: Postoperative anterior and posterior repair with perineoplasty. Patient is doing well. Plan of Treatment: Patient will be discharged after postvoid residual check Discharge Plan Discharge Plan Patient Disposition: Home Discharge orders & Medications Discharge Orders: Discharge (Order); Ordered 01/29/21 Ordered By: Marisol Shore Prescriptions: Continued fluticasone propionate 50 mcg/actuation spray,suspension 2 spray NASAL DAILY RF: 0 rizatriptan 10 mg tablet See Rx Instructions PO .COMPLEX Qty: 30 RF: 0 desonide 0.05 % lotion 0.05 % Topical DAILY PRN (Reason: itching) Qty: 60 RF: 5 gabapentin 300 mg capsule See Rx Instructions .ROUTE .COMPLEX Qty: 90 RF: 2 diclofenac sodium 75 mg tablet,delayed release (DR/EC) See Rx Instructions .ROUTE .COMPLEX Qty: 180 RF: 0 zolpidem 5 mg tablet 5 mg PO BEDTIME Qty: 30 RF: 2 clobetasol 0.05 % ointment 1 applictn TOP BID Qty: 30 RF: 5 clobetasol 0.05 % solution 0.05 % Topical BID Qty: 50 RF: 5 lamotrigine 50 mg tablet extended release 24hr See Rx Instructions .ROUTE .COMPLEX RF: 0 hydrocodone-acetaminophen 5-325 mg tablet 1 tab PO Q4-6H PRN (Reason: pain) Qty: 20 RF: 0 fexofenadine 180 mg Tablet 180 mg PO DAILY RF: 0 Follow up/Referrals: Marisol Shore MD [Physician] - As previously scheduled (02/13/2021 2563) Gemini Deleon MD [Primary Care Provider] - Diet/Activity/Treatments Diet: Regular Activity: Nothing in vagina or lifting over 20 lb for 6 weeks Skin/Wound/Dressing Care Report to your healthcare provider any signs of infection, such as:: chills, fever and increased pain Visit Report/Discharge Packet Stand Alone Forms: Surgery Discharge Discharge Data Primary Care Provider: Gemini Deleon Attending Provider: Marisol Shore
[2021-01-29 08:00] VITALS: BP 103/55; PULSE 70; RESP 15; TEMP 37.1; O2SAT 96
[2021-01-29 08:57] VITALS: O2SAT 97
[2021-01-29] MEDS: DOCUSATE 100 MG CAPSULE 200 MG PO (09:14)
--- NOTE | 2021-01-29 10:09 | PC.NURSE ---
Assess- Patient is alert and oriented x3, she was just given toradol which has been helpful for patients discomfort. She will discharge home and has voided only 100cc after baker taken out that was pink colored and her peripad had a medium amount of light colored blood. No clots noted. Resting and tolerated breakfast.
--- NOTE | 2021-01-29 11:26 | CM.DANOTE ---
DCP: Case received, EMR reviewed and met with patient. Introduced self and role. Was able to obtain informatin regarding patient's baseline activity status prior to hospitalization. DCP assessment completed with information currently available. 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 PCP: Dr. Deleon. Payer: confirmed: [facility]. Patient came to the hospital via private vehicle for a surgical procedure. She had hysterectomy secondary to a vaginal wall prolapse. Met with patient in her room. She is alert and oriented, pleasant. She was laying in bed. Patient confirmed that she is independent at her baseline. She resides in [place] with her spouse, Eugenio. P: Patient is to be discharged home today with support. Paulette Umana RN/Bilingual Trainer Discharge Planning/Care Management CM Discharge Assessment Start: 01/29/21 11:24 Freq: Status: Active Protocol: Document 01/29/21 11:24 (Rec: 01/29/21 11:26 [id number]) Discharge Planning Assessment Assigned Wine Steward Paulette Umana RN/Bilingual Trainer Advance Directives? Yes Advance Directives on File No History Provided By Patient,Medical Record Prior Living Arrangements House Household Members spouse,children Type of transporation used prior to Drives own vehicle admit Independent with ADL's Yes Barriers to Discharge No Discharge Plan Home Transportation Arrangement Spouse Referrals Initiated None needed Whiteboard Updated in Patient Room with Yes name and ext. # of Wine Steward Review Status In Process Next Review Type Continued Stay Review Pre-Anesthesia Assessment Start: 01/27/21 08:21 Freq: Status: Active Protocol: Document 01/27/21 08:21 [facility] (Rec: 01/27/21 08:39 [facility] [id number]) Pre-Anesthesia Assessment Patient Information Reviewed Via Chart Review H&P Completed Within 30 Days Yes Comment COVID screen @ [facility] 01/27/21 Primary Care Provider Gemini eDleon Seen Specialist in Last 12 Months Yes Specialist Seen Hand Winder Primary Language Lao Preferred Language Lao Height 5 ft 7.5 in Weight 224 lb Body Mass Index (BMI) 34.5 Other Aids No Hx Anesthesia Reactions No Hx Family Anesthesia Reaction No Hx Malignant Hyperthermia No Hx Blood Transfusions No Hx Blood Transfusion Reaction No Anesthesia Review Requested No E Merchant No alcohol intake current alcohol intake frequency a few times a week Smoking Status Former smoker Tobacco type cigarettes how long ago did patient quit smoking 1984 Substance Use Type does not use Patient is completely paralyzed or No completely immobile Is patient on oxygen? No Does patient have TINOCO/SOB No Hx Sleep Apnea No CPAP/BIPAP use not prescribed Currently Taking a Beta Osvaldo No Can You Climb a Flight of Stairs Without No SOB Hx Chest Pain No Hx SOB No Hx Syncope or Dizziness No Anti-Coagulant Therapy No Cardiac Testing No Hx Pacemaker/ICD No Bladder Pattern Incontinent, Stress Urinary Catheter Present No Hx Urinary Self Catheterization No Diabetes No Patient No Lactating No Hx Drug Resistant Organism No Presence of External or Internal Medical Yes: neck hardware Devices Marital Status Lives With spouse,children Patient Discharge Plan Description Return Home Do You Have Any Spiritual Beliefs That No May Affect Your HC Choices? Do You Have Any Cultural Practices That No May Affect Your HC Choices? Emergency Contact Name Jagjit Chandler Emergency Contact Advance Directives? Yes Advance Directives on File No Power of Engineering Research Manager Yes Power of Engineering Research Manager Name Jagjit Chandler Power of Engineering Research Manager
[2021-01-29] MEDS: HYDROCODONE/ACET 5/325 TABLET 1 TAB PO (11:56)
== END 2021-01-29 13:07 | disposition home or self-care (01) ==
LOC: OR 12:19 → AC 12:19
PROVIDERS: PCP Family Medicine; Referring Provider Specialist; Visit Provider Specialist
PROC: (CPT 57260; principal; 2021-01-28 13:30)
DX: N99.3 Prolapse of vaginal vault after hysterectomy (principal); Z23 Encounter for immunization
CPT/HCPCS: 57260; 90471; 90656; 94760; J0171; J0690; J1100; J1885; J2405; J2704; J3010; Q2038

== ENCOUNTER → 2021-02-06 10:51 | Outpatient (CLI) | payer OTHER, SELFPAY ==
[2020-04-25 10:04] VITALS: BMI 32.3
[2021-01-28 15:26] VITALS: BMI 33.6
--- NOTE | 2021-02-06 | DI.MG.S_ITS ---
BILATERAL DIGITAL SCREENING MAMMOGRAM 3D/2D WITH CAD: 02/06/2021 CLINICAL: Routine screening. Family history of breast cancer. Comparison is made to exams dated: 11/20/2019 mammogram, 10/03/2018 mammogram, and 09/20/2017 mammogram - [facility]. There are scattered fibroglandular elements in both breasts. Current study was also evaluated with a Computer Aided Detection (CAD) system. No significant masses, calcifications, or other findings are seen in either breast. There has been no significant interval change. IMPRESSION: NEGATIVE There is no mammographic evidence of malignancy. A 1 year screening mammogram is recommended. This exam was interpreted at Station ID: [id number]. NOTE: For mammograms, a report in lay terms will be sent to the patient. Approximately 15% of breast malignancies will not be visualized mammographically. In the management of a palpable breast mass, a negative mammogram must not discourage biopsy of a clinically suspicious lesion. Electronically Signed By: Sincere ryan/tania:02/06/2021 11:21:32 letter sent: Normal Exam ACR BI-RADS Category 1: Negative 3341F
== END ==
PROVIDERS: PCP Family Medicine; Referring Provider Family Medicine; Visit Provider Family Medicine
DX: Z12.31 Encounter for screening mammogram for malignant neoplasm of breast (principal); Z80.3 Family history of malignant neoplasm of breast
CPT/HCPCS: 77063; 77067

== ENCOUNTER → 2021-06-26 08:19 | Outpatient (CLI) | payer OTHER, SELFPAY ==
[2021-01-28 15:26] VITALS: BMI 33.6
== END ==
PROVIDERS: PCP Family Medicine; Visit Provider Specialist
DX: R35.0 Frequency of micturition (principal)
CPT/HCPCS: 87077; 87086; 87185; 87186

== ENCOUNTER → 2022-04-13 09:13 | Outpatient (CLI) | payer OTHER, SELFPAY ==
[2021-01-28 15:26] VITALS: BMI 33.6
--- NOTE | 2022-04-13 | DI.MG.S_ITS ---
BILATERAL DIGITAL SCREENING MAMMOGRAM 3D/2D WITH CAD: 04/13/2022 CLINICAL: Routine screening. Family history of breast cancer. Comparison is made to exams dated: 02/06/2021 mammogram, 11/20/2019 mammogram, and 10/03/2018 mammogram - [facility]. There are scattered areas of fibroglandular density in both breasts (category b / 25%-50% glandular tissue). Current study was also evaluated with a Computer Aided Detection (CAD) system. No significant masses, calcifications, or other findings are seen in either breast. There has been no significant interval change. IMPRESSION: NEGATIVE There is no mammographic evidence of malignancy. A 1 year screening mammogram is recommended. Based on the Tyrer Cuzick model (a risk assessment model) the patient's lifetime risk is 8.0% and her 10 year risk is 3.1%. According to the ACR, ACS, and NCCN guidelines, an annual breast MRI exam along with mammogram is recommended if the patient's lifetime risk is 20% or greater. This exam was interpreted at Station ID: [id number]. NOTE: For mammograms, a report in lay terms will be sent to the patient. Approximately 15% of breast malignancies will not be visualized mammographically. In the management of a palpable breast mass, a negative mammogram must not discourage biopsy of a clinically suspicious lesion. Electronically Signed By: Sincere ryan/tania:04/13/2022 14:16:29 letter sent: Normal Exam ACR BI-RADS Category 1: Negative 3341F
== END ==
PROVIDERS: PCP Family Medicine; Referring Provider Family Medicine; Visit Provider Family Medicine
DX: Z12.31 Encounter for screening mammogram for malignant neoplasm of breast (principal); Z80.3 Family history of malignant neoplasm of breast
CPT/HCPCS: 77063; 77067

== ENCOUNTER → 2022-07-03 11:45 | Outpatient (CLI) | payer OTHER, SELFPAY ==
[2021-01-28 15:26] VITALS: BMI 33.6
--- NOTE | 2022-07-03 | DI.RAD.S_ITS ---
PROCEDURE: XR HIP W PEL IF DONE RT 2V INDICATIONS: right hip pain TECHNIQUE: AP pelvis with lateral view(s) of the right hip(s). COMPARISON: None. FINDINGS: Bones: No fractures or dislocations. Pelvic ring appears intact. No suspicious bony lesions. There is severe osteoarthritic type degenerative change involving the patient's right hip. Left hip appears within normal limits. Soft tissues: The visualized bowel gas pattern is normal. No suspicious soft tissue calcifications. IMPRESSION: Severe osteoarthritic degenerative change right hip. Dictated by: Tyler Toro M.D. on 07/03/2022 at 13:03 Approved by: Tyler Toro M.D. on 07/03/2022 at 13:05
== END ==
PROVIDERS: PCP Family Medicine; Referring Provider Family Medicine; Visit Provider Family Medicine
DX: M16.11 Unilateral primary osteoarthritis, right hip (principal); M25.551 Pain in right hip
CPT/HCPCS: 73502

== ENCOUNTER → 2022-07-13 08:21 | Outpatient (CLI) | payer OTHER, SELFPAY ==
[2021-01-28 15:26] VITALS: BMI 33.6
[2022-07-13 09:00] LABS: Add Manual Diff / Slide Review NO; Basophils Absolute Auto 0 /uL (0-100); Basophils Percent Auto 0.7 % (0-2); Eosinophils Absolute Auto 200 /uL (0-450); Eosinophils Percent Auto 3.8 % (2-4); Hematocrit 40.3 % (36-46); Hemoglobin 13.7 g/dL (12.0-16.0); Lymphocytes Absolute Auto 1600 /uL (1100-4500); Lymphocytes Percent Auto 27.7 % (25-40); Mean Corpuscular Hemoglobin 30.6 PG (26-34); Monocytes Absolute Auto 300 /uL (0-900); Neutrophils Absolute Auto 3600 /uL (1500-7000); Neutrophils Percent Auto 62.8 % (50-75); Platelet Count 253 X10^3/uL (150-400); Red Blood Cell Count 4.47 X10^6/uL (4.0-5.2); Red Cell Distribution Width 13.5 % (11.6-14.8); White Blood Cell Count 5.7 X10^3/uL (4.5-11.0)
[2022-07-13 09:11] LABS: BUN Creatinine Ratio 35.7 (6-22); Blood Urea Nitrogen 25 mg/dL (7-17); Calcium 9.2 mg/dL (8.4-10.2); Carbon Dioxide 29 mmol/L (22-32); Chloride 106 mmol/L (98-107); Cholesterol 174 mg/dL (140-199); Estimated Glomerular Filt Rate > 60 mL/min (>60); Glucose 96 mg/dL (80-110); HDL Cholesterol 57 mg/dL (40-60); HEMOLYSIS < 15 (0-50); LDL Cholesterol Calculated 100 mg/dL (<100); Potassium 4.4 mmol/L (3.4-5.1); Sodium 141 mmol/L (137-145); Triglycerides 87 mg/dL (35-150)
== END ==
PROVIDERS: PCP Family Medicine; Referring Provider Family Medicine; Visit Provider Family Medicine
DX: K25.7 Chronic gastric ulcer without hemorrhage or perforation (principal); T39.395A Adverse effect of other nonsteroidal anti-inflammatory drugs [NSAID], initial encounter; E78.5 Hyperlipidemia, unspecified; D64.9 Anemia, unspecified
CPT/HCPCS: 36415; 80048; 80061; 85025

== ENCOUNTER → 2022-10-16 08:51 | Outpatient (CLI) | payer OTHER, SELFPAY ==
[2021-01-28 15:26] VITALS: BMI 33.6
[2022-10-17 04:00] LABS: Labcorp Hemoglobin (Hb) A1c 5.6 % (4.8-5.6)
--- NOTE | 2022-12-15 11:00 | DI.RAD.S_ITS ---
PROCEDURE: XR HIP W PEL IF DONE RT 2V INDICATIONS: POST OP ANTERIOR HIP RIGHT TECHNIQUE: AP pelvis and lateral view of the right hip acquired. COMPARISON: [facility], CR, XR PELVIS WITH LATERAL HIP RIGHT, 10/02/2022, 13:41. [facility], CR, XR HIP W PEL IF DONE RT 2V, 12/15/2022, 9:22. FINDINGS: Bones: Patient is status post right hip arthroplasty, with hardware components in expected positions. The hip joint appears congruent. The visualized bony structures appear intact. Soft tissues: Overlying postoperative changes are noted. No suspicious soft tissue densities. IMPRESSION: Right hip arthroplasty with prosthesis in anatomic alignment. Dictated by: Joshua Moore M.D. on 12/15/2022 at 14:29 Approved by: Joshua Moore M.D. on 12/15/2022 at 14:29
== END ==
PROVIDERS: PCP Family Medicine; Referring Provider Orthopaedic Surgery; Visit Provider Orthopaedic Surgery
DX: R73.9 Hyperglycemia, unspecified (principal); M16.10 Unilateral primary osteoarthritis, unspecified hip; Z01.818 Encounter for other preprocedural examination
CPT/HCPCS: 36415; 83036; 93005

== ENCOUNTER 2022-12-15 06:32 | Day surgery (SDC) | payer OTHER, SELFPAY ==
[2021-01-28 15:26] VITALS: BMI 33.6
[2022-11-23 15:46] VITALS: BMI 28.8
[2022-12-15] VITALS (11 sets, daily range): BP systolic 89–132; BP diastolic 38–74; PULSE 67–82; RESP 12–17; TEMP 36.2–36.4; O2SAT 95–99; BMI 28.8
--- NOTE | 2022-12-15 06:00 | DI.RAD.S_ITS ---
PROCEDURE: XR HIP W PEL IF DONE RT 2V INDICATIONS: AD TECHNIQUE: AP pelvis with lateral view(s) of the 3 hip(s). COMPARISON: [facility], CR, XR HIP W PEL IF DONE RT 2V, 12/15/2022, 10:53. [facility], CR, XR HIP W PEL IF DONE RT 2V, 07/03/2022, 11:49. FINDINGS: Right hip arthroplasty projects in the expected location. No obvious fracture or suspicious bone lesion. Intraoperative guidance provided. Pessary. IMPRESSION: Intraoperative guidance provided. Expected intraoperative appearance of the right hip arthroplasty. Dictated by: Altaf Boateng M.D. on 12/15/2022 at 11:24 Approved by: Altaf Boateng M.D. on 12/15/2022 at 11:25
[2022-12-15] MEDS: PREGABALIN 75 MG CAPSULE PO (06:44)
[2022-12-15] MEDS: CELECOXIB 200 MG CAPSULE PO (06:44)
[2022-12-15] MEDS: VANCOMYCIN 1,000 MG/200 ML PIGGYBACK 200 MG IV (06:44)
[2022-12-15] MEDS: ACETAMINOPHEN 325 MG TABLET 975 MG PO (06:45)
[2022-12-15] MEDS: LACTATED RINGERS 1,000 ML 42 ML IV ×2 (06:45→10:19)
--- NOTE | 2022-12-15 07:43 | P.OP_ITS ---
Operative Date/Time/Diagnoses Date of procedure: 12/15/22 Time of procedure: 08:00 Pre-op diagnosis: right hip OA Post-op diagnosis: same Procedure & Clinicians Procedure: Right total hip arthroplasty anterior approach Same procedure as scheduled: Yes Indications: The patient has had progressively worsening right hip pain with radiographic c hanges consistent with arthritis. Non-operative management has failed and the patient has requested total hip replacement. The risks, benefits and alternatives to surgery were discussed with the patient prior to proceeding. Risks discussed included, but were not limited to, failure to relieve pain, leg length discrepancy, dislocation, stiffness, infection, nerve damage, deep venous thrombosis, pulmonary embolism, stroke, coma, heart attack, permanent paralysis and , as well as the potential need for eventual revision of the prosthetic. Surgeon: Yomaira Humphreys Architectural Design Professor: Toney Calixto Anesthesia Type: General and Spinal Operative Notes Findings: Severe right hip osteoarthritis, adequate bone, adequate stability Closure Type: primary Specimen(s): none sent Prosthetic devices, grafts, tissues, transplants, or devices: Humphreys and nephew R3 54, neutral poly liner, 36 by +0 Oxinium head, size 1 polar stem standard offset with collar, one 6.5 mm screw Estimated Blood Loss (mL): 250 Blood products transfused: none Procedure in detail: The patient was brought to the operating room. Patient was carefully positioned in the supine position. Time-out was performed and antibiotics were given. Anesthesia was induced. She was positioned in the on the table in order to allow hyperextension of the hip. The right lower extremity was prepped and draped in a standard sterile fashion. An anterior right hip incision was made 1 fingerbreadth lateral to the anterior superior iliac spine and extended distally towards the greater trochanter. Dissection was carried out through skin and subcutaneous tissues. Superficial hemostasis was achieved. The fascia over the tensor fascia ninfa was defined and incised with a knife. Two Allis clamps were used to grasp the fascia. Tensor fascia ninfa was retracted laterally. A gelpi retractor was placed. Dissection was carried out down along the neck. The circumflex vessels were carefully identified and cauterized with the Aqua Mantis. A PA was used in the procedure and was essential for intraoperative retraction and safe implantation of the components. They were also helpful for achieving adequate hemostasis. There was good visualization of the femoral neck. A Cobra was placed superior to the neck and the gluteus fibers were carefully stripped from that superior aspect of the capsule. A 2nd retractor was placed along the inferior aspect of the neck. The rectus insertion along the capsule was partially released. A 3rd retractor that was then gently placed over the rim of the acetabulum under the rectus. Capsule was carefully incised and released from the intertrochanteric line circumferentially superior to the mid sagittal line and inferiorly to the mid sagittal line until the lesser trochanter was palpable. A tag stitch was placed both in the superior and inferior limb of the capsular insertion. Along the acetabulum capsule was also released up to the mid sagittal 12:00 position. A portion of the labrum was resected. A saw was used to perform an osteotomy at the level of the intertrochanteric line and the junction of the superior femoral neck leaving approximately 1 finger breath of residual inferior neck above the lesser trochanter. A 2nd cut was made along the femoral neck at the base of the head and a napkin ring of neck was removed. Corkscrew was placed in the femoral head and the head was removed without difficulty. Retractors were then repositioned around the acetabulum. Residual labrum was resected and additional osteophytes were removed. A reamer that was 4 mm below the templated size was placed by hand in the acetabulum and it was reamed to centralize the acetabulum. It was then reamed up to 2 under the templated size and fluoroscopy was brought in to confirm the position of the reaming and depth of reaming. I reamed 1 under the anticipated size. A trial cup was placed and noted that it was appropriately sized and fluoroscopy confirmed position and depth. The component was open and inserted without difficulty fluoroscopic imaging was used to confirm that the cup had been adequately seated and was well positioned. It was further stabilized with a single screw. Neutral poly liner was placed. The cup was tested and noted to be stable. Attention was then directed to the femur. The femur was gently hyperextended additional capsular release was performed as needed in order to allow adequate visualization of the proximal femur with elevation of the femur. Patient was placed in a hyperextended slightly adducted position with maximum external rotation. Box osteotome was used to check for any residual neck as well as sclerotic bone along the trochanter. [place] pepper was placed in the femur. Additional broaching was performed. Canal finder was used to determine the alignment of the canal and position. Size 1 broach was placed. The canal was then appropriately broached up to the templated size as long as there was adequate stability of the broach and serial advancement of the broach without excessive impingement. Specific attention was directed at avoiding varus attempting to direct the distal aspect of the broach more anteriorly and avoiding excessive anteversion. Trial reduction showed acceptable range of motion, good stability, no posterior impingement, religious of leg length and appropriate lateral shuck. I also hyperflexed the hip and checked that there was no impingement anteriorly and there was good stability with flexion, adduction and internal rotation. Marcaine and Exparel were injected. The stem was placed without difficulty. Repeat trial reduction and x-ray showed acceptable overall position, length, and no evidence of the femoral fracture. Final head was placed. Wound was meticulously irrigated with normal saline. The hip was reduced and additional Exparel and Marcaine were injected. The capsule was closed with interrupted nonabsorbable sutures. The fascia of the tensor was closed with interrupted and running Vicryl. No drain was placed. Any tensor fascia ninfa muscle that appeared to be contused or injured which was a minimal amount was carefully resected. Capsule around the tensor was injected with Exparel and Marcaine. The skin was closed with barbed stitches for the subcutaneous tissue and skin. We also used surgical glue. The wound was dressed sterilely. Brief Betadine soak was also used and was meticulously irrigated with normal saline. Patient was transferred to recovery room in satisfactory condition. Complications: none Post-operative Condition: stable Disposition: Acute Care Plan for aftercare: The patient will be maintained on a standard total hip replacement protocol with weight bearing as tolerated and anterior hip precautions. The patient will receive Aspirin and sequential compression devices for DVT prophylaxis. The patient will be discharged home when safe for the home environment.
--- NOTE | 2022-12-15 07:43 | PM.PREOP ---
Pre-operative Note Interval Note History & Physical reviewed/Exam performed by Physician: Yes Changes to H&P: No
[2022-12-15] MEDS: CEFAZOLIN 2 GM/100 ML PREMIX 100 ML IV ×2 (08:01→15:11)
[2022-12-15] MEDS: TRANEXAMIC ACID 1,000 MG VIAL 2000 MG INJ ×2 (08:10→10:13)
--- NOTE | 2022-12-15 08:42 | SUR.OPER ---
Patient supine on padded [place] table, one arm on padded arm board at <90, other arm padded and secured with tape across patient's chest, both legs secured in padded traction boots and positioned per surgeon, padded post at patient's groin, pressure points checked and padded.
[2022-12-15] MEDS: BUPIVACAINE 0.25% (PF) 60 ML, EPINEPHrine 0.3 MG INJ (10:38)
[2022-12-15] MEDS: BUPIVACAINE LIPOSOME 266 MG/20 ML VIAL INJ (10:38)
[2022-12-15] MEDS: ACETAMINOPHEN 325 MG TABLET 650 MG PO ×2 (11:45→16:42)
[2022-12-15] MEDS: IBUPROFEN 400 MG TABLET PO ×3 (11:45→18:44)
[2022-12-15] MEDS: LACTATED RINGERS 1,000 ML 100 ML IV (11:45)
[2022-12-15] MEDS: OXYCODONE IR 5 MG TABLET PO ×3 (11:46→18:07)
--- NOTE | 2022-12-15 13:00 | PT.IIE ---
Current Diagnoses Unilateral primary osteoarthritis, right hip (12/15/22) Surgery Performed Operation Date: 12/15/22 07:45 Actual Procedures p Total Hip Arthroplasty/Anterior Approach(Right) - Yomaira Humphreys MD Surgical History (Last Reviewed 01/28/21 @ 12:47 by Kike Sanchez RN) History of carpal tunnel repair History of prolapse of bladder History of shoulder replacement History of tonsillectomy Hx of bladder repair surgery Hx of cervical spinal arthrodesis Hx of cholecystectomy Status post breast lumpectomy Status post breast reduction Status post hysterectomy Status post knee surgery Medical History (Last Updated 03/14/21 @ 14:53 by Marisol Shore MD) Anesthesia Arthritis of glenohumeral joint Back pain (~2006) Migraines Normal colonoscopy (~2012) Partial tear of rotator cuff Posterior vaginal wall prolapse Prolapse of vaginal eng Shoulder impingement Shoulder pain (~2007) Surgical procedure planned (~2012) Physical Therapy Inpatient Evaluation/Re-Eval M1 PT/OT-IP Prior Functional Status Start: 12/15/22 13:33 Freq: NEEDED Status: Active Protocol: Document 12/15/22 13:34 AB (Rec: 12/15/22 14:08 [id number]) Medical Review Prior Functional Status Medical History Reviewed Yes Communication Pt is able to express and communicate all needs. Mobility and Gait Pt ambulated without an AD prior to surgery. Activities of Daily Living and IADL's IND with all ADLs and IADLs Social History Household Members spouse,children Living Arrangements House Number of Floors (Floors) One Floor Number of Stairs To Enter/Railing? 3 JASMINE with 2 hand rails Home Environment Standard Height Toilet,Walk in Shower,Built-In Shower Seat Home Equipment Front Wheel Walker,Straight Cane,Raised Toilet Seat Without Armrests,Hand Held Shower,Long Handled Shoe Horn, Retail Leasing Agent,Sock Aid Additional Social History Comment Pt lives with who will be able to assist her when he is home from work, but their son can assist her 26/10 also. M2 PT-IP Current Condition Start: 12/15/22 13:33 Freq: NEEDED Status: Active Protocol: Document 12/15/22 13:34 AB (Rec: 12/15/22 14:08 [id number]) Physical Therapy Current Condition Current Condition Evaluation Date 12/15/22 Treatment Diagnosis s/p right AD anterior approach Onset Date 12/15/22 M3 PT-IP Subjective Start: 12/15/22 13:33 Freq: NEEDED Status: Active Protocol: Document 12/15/22 13:34 AB (Rec: 12/15/22 14:08 AB [id number]) Subjective Physical Therapy Visit Type Type Initial Evaluation Visit Start Time 13:00 Visit Stop Time 13:32 Total Visit Minutes 32 Notes Pt presents semi supine in bed with all needs met. Number of ORCHID GROWER Visits 0 Physical Therapy Visit Comments Patient Comments The pt reports she is not having any pain, but reports she is still having some numbeness in her butt. She is agreeable to PT evaluation this afternoon. Patient Goals She states she would like to go home today. Therapy Pain Assessment Pain When Pain Assessed During Mobility Pain Present Pain Present Denied Pain M4 PT-IP Mobility and Gait Start: 12/15/22 13:33 Freq: NEEDED Status: Active Protocol: Document 12/15/22 13:34 AB (Rec: 12/15/22 14:08 AB [id number]) PT-Bed Mobility Assessment Rolling Type of Rolling Bilateral Level of Assist Independent Supine to Sit Supine to Sit Independent Sit to Supine Sit to Supine Independent Scooting Scooting to Edge of Bed Independent Scooting Up and Down in Bed Independent PT-Transfer Assessment Sit to and From Stand Sit to and from Stand Independent,Use of Upper Extremities Equipment Transfer Assistive Device Gait Belt,Front Wheeled Walker Transfers Transfer Destination Bed Transfer Technique Stand Step Pivot Transfer Ability Level of Assist Standby Assistance,Use of Upper Extremities Gait Assessment Gait Gait Assistance Required: Standby Assistance,1 Person Assist Distance (Feet) 20 Assistive Devices Assistive Device Gait Belt,Front Wheeled Walker Gait Deviations General Gait Pattern Antalgic,Decreased Stride Length Factors Limiting Gait Function Factors Limiting Gait Function Decreased Activity Tolerance, Decreased Strength,Limited Range of Motion Comments Gait Comments Gait deviations are consistent with surgical procedure and post-op precautions. Unable to ambulate longer distance due to reports of feeling unsteady due to RLE numbness. Stair Climbing Assessment Comments Stair Climbing Comments Not assessed this session due to reports of numbness in RLE causing her to feel a little unsteady. PT-Balance Assessment Sitting Balance and Reactions Static Sitting Balance Ability Normal Dynamic Sitting Balance Ability Normal Standing Balance and Reactions Static Standing Balance Ability Normal Dynamic Standing Balance Ability Good M5 PT-IP Objective Assessments Start: 12/15/22 13:33 Freq: NEEDED Status: Active Protocol: Document 12/15/22 13:34 AB (Rec: 12/15/22 14:08 AB [id number]) Orientation Orientation/Cognition Level of Alertness Alert Orientation Name,Date,Place,Situation Language Function Ability No Deficits Noted Safety Awareness Understands Safety Issues Memory Description No Deficits Noted Gross Range of Motion Upper Extremity ROM Assessment Within Functional Limits Lower Extremity ROM Assessment Right Impaired Strength Upper Extremity Strength Assessment Within Functional Limits Lower Extremity Strength Assessment Right Impaired Sensation Assessment Sensation Gross Sensation Right LE Impaired Sensation Description Numbness M6 PT-IP Treatment Start: 12/15/22 13:33 Freq: NEEDED Status: Active Protocol: Document 12/15/22 13:34 AB (Rec: 12/15/22 14:08 AB [id number]) Physical Therapy Treatment Exercises Exercises Ankle Pumps,Seated Knee Flexion/Extension Education Education Provided Precautions,Weight Bearing Status,Post-Op Packet,Safety Brace Education Patient Other Treatments Other Treatment Performed At start of session, the pt's BP is 132/65 mmHg. She denies any symptoms when performing functional mobility. At end of session, the pt returned to bed and into comfortable position with all needs met, call light within reach, and at bedside. RN was notified of findings. M7 PT-IP Assessment and Plan Start: 12/15/22 13:33 Freq: NEEDED Status: Active Protocol: Document 12/15/22 13:34 AB (Rec: 12/15/22 14:08 AB [id number]) PT Summary Assessment and Plan Potential Rehabilitation Potential Excellent Status of Condition at Evaluation Stable Summary Impairments Pain,ROM,Strength,Balance, Transfers,Gait,Activity Tolerance Assessment Summary Shelby Chandler is a 62 year old female patient who is s/p right AD anterior approach performed on 12/15/22. The patient demonstrates with impairments consistent with this surgical procedure including gait deviations, LE ROM deficits, and LE muscular weakness. Currently, the pt is able to perform bed mobility and STS with independence, however requires SBA for transfers and gait due to weakness and reports of numbness in her RLE. She requires FWW for transfers and gait for this reason. Based on these findings, the pt would benefit from skilled PT during her hospital stay to improve these impairments. Discharge to home and outpatient PT is recommended at this time based on her level of function, given that she can ascend/descend stairs with SBA. The pt was educated on post op management and precautions and verbalizes understanding. Goals Bed Mobility Goal Independent Transfer Goal Independent,Front Wheeled Walker Gait Goal Independent,Front Wheel Walker Gait Distance 200 Other Goals Pt to be able to ascend and descend 3 steps with use of 2 hand rails with SBA or independent to improving LE strength to be able to return to home safely. Days to Meet Goals 5 Frequency of Treatment Frequency Of Treatment Twice a Day Treatment Plan Physical Therapy Treatment Plan Gait Training,Therapeutic Exercise,Balance Retraining, Post Op Education,Discharge Planning,Hot or Cold Pack, Neuromuscular Re-ed Other Recommendations and Next Treatment Assess ambulation of household Focus and community distances and stairs. Precautions Anterior Hip Precautions No Hip Extension,No Hip External Rotation Weight Bearing Status Weight Bearing Status Weight Bear as Tolerated Recommendations To Nursing Amount of Assist Needed Standby Assistance Discharge Recommendations PT Discharge Recommendations Home,Outpatient PT Transportation Needs at Discharge Private Vehicle smi
--- NOTE | 2022-12-15 13:55 | OT.IP.EVAL ---
Current Diagnoses Unilateral primary osteoarthritis, right hip (12/15/22) Surgery Performed Operation Date: 12/15/22 07:45 Actual Procedures p Total Hip Arthroplasty/Anterior Approach(Right) - Yomaira Humphreys MD Past Medical History (Last Updated 03/14/21 @ 14:53 by Marisol Shore MD) Anesthesia Arthritis of glenohumeral joint Back pain (~2006) Migraines Normal colonoscopy (~2012) Partial tear of rotator cuff Posterior vaginal wall prolapse Prolapse of vaginal eng Shoulder impingement Shoulder pain (~2007) Surgical procedure planned (~2012) Surgical History (Last Reviewed 01/28/21 @ 12:47 by Kike Sanchez RN) History of carpal tunnel repair History of prolapse of bladder History of shoulder replacement History of tonsillectomy Hx of bladder repair surgery Hx of cervical spinal arthrodesis Hx of cholecystectomy Status post breast lumpectomy Status post breast reduction Status post hysterectomy Status post knee surgery Occupational Therapy Inpatient Evaluation/Re-Eval M1 PT/OT-IP Prior Functional Status Start: 12/15/22 13:33 Freq: NEEDED Status: Active Protocol: Document 12/15/22 13:55 [facility] (Rec: 12/15/22 14:10 [facility] [id number]) Medical Review Prior Functional Status Communication Independent Mobility and Gait Independent with no device but had pain. Activities of Daily Living and IADL's Pt has pain during her ADl and IADL needs. Prior Functional Level (Other details) Pt has her son to assist her and when not at work. Social History Household Members spouse,children Living Arrangements House Number of Floors (Floors) One Floor Number of Stairs To Enter/Railing? 3 steps with bilateral rail. Home Environment Standard Height Toilet,Walk in Shower Home Equipment Front Wheel Walker,Straight Cane,Raised Toilet Seat Without Armrests,Hand Held Shower,Long Handled Shoe Horn, Well Drill Operator Rotary Drill,Sock Aid Additional Social History Comment Pt has two built in seats. M2 OT-IP Current Condition Start: 12/15/22 13:57 Freq: Status: Active Protocol: Document 12/15/22 13:55 [facility] (Rec: 12/15/22 14:10 [facility] [id number]) Occupational Therapy Current Condition Current Condition Evaluation Date 12/15/22 Treatment Diagnosis S/P R AD with anterior approach Diagnosis Onset Date 12/15/22 Post Operative Precautions Anterior Hip Precautions No Hip Extension,No Hip External Rotation M3 OT- IP Subjective and Pain Start: 12/15/22 13:57 Freq: Status: Active Protocol: Document 12/15/22 13:55 [facility] (Rec: 12/15/22 14:10 [facility] [id number]) OT- Subjective Occupational Therapy Visit Type Type Initial Evaluation Visit Start Time 12:33 Visit Stop Time 13:55 Total Visit Minutes 23 Occupational Therapy Visit Comments Patient Comments Pt agreed to get up and practice use of LB dressing equipment. Pt's in the room. Patient/Caregiver Goals To go home. OT Pain Assessment Pain When Pain Assessed At Rest Pain Present Pain Present Pain Reported Location hip Intensity 2 Scale Used Numeric (0 - 10) M4 OT- IP ADL's Start: 12/15/22 13:57 Freq: Status: Active Protocol: Document 12/15/22 13:55 [facility] (Rec: 12/15/22 14:10 [facility] [id number]) OT OJJ-Ulor-Tobnmbm General Evaluation Self-Feeding Ability Independent OT ADL-Grooming General Evaluation Grooming Ability Independent OT ADL-Oral Care Comments Oral Care Comments Pt states did prior. OT ADL-Dressing General Eval Lower Body Dressing Ability Standby Assistance Comments OT Dressing Comments Pt able to lean forwards to be able to kyrie her socks and use of investment associate to take it off. Pt aware not to cross her RLE over for dressing needs. OT ADL-Toileting Comments OT Toileting Comments Not performed. Pt states does not get up at night at home but can get her to assist as needed. OT ADL-Bathing Comments OT Bathing Comments NOt performed. M5 OT- IP IADL's Start: 12/15/22 13:57 Freq: Status: Active Protocol: Document 12/15/22 13:55 [facility] (Rec: 12/15/22 14:10 [facility] [id number]) OT-Instrumental Activities of Daily Living Deficits IADL Deficits Identified Deficits Home Safety Awareness Awareness of Need for Assistance at Home Good Awareness Ability to Problem Solve Emergency Able to Problem Solve Situations Home Safety Comments Pt has supportive son and to assist her as needed. Medication Management Medication Management No Deficits Identified Money Management Money Management No Deficits Identified Meal Preparation Meal Preparation Comments Pt's family to assist. Glass Scullion Glass Scullion Caregiver Provides Assist M6 OT- IP Functional Cognition Start: 12/15/22 13:57 Freq: Status: Active Protocol: Document 12/15/22 13:55 [facility] (Rec: 12/15/22 14:10 [facility] [id number]) Cognitive Factors Limiting Selfcare Function Cognitive Ability Level of Alertness Alert Patient Orientation Name,Age,Birthday,Month,Date, Year,Day of Week,Place, Situation Attention Span Ability Capable of Focused Attention, Capable of Sustained Attention Ability to Follow Commands Able to Follow Multi-Step Commands Memory Description No Deficits Noted Safety Awareness No Deficits Noted Cognitive Comments Cognitive Assessment Comments Pt intact. OT- Vision and Hearing OT- Hearing Assessment OT- Hearing Assessment WFL OT- Vision Assessment Visual Acuity Glasses All The Time Visual Attentiveness WFL Occular Pursuits WFL M7 OT- IP Mobility and Balance Start: 12/15/22 13:57 Freq: Status: Active Protocol: Document 12/15/22 13:55 [facility] (Rec: 12/15/22 14:10 [facility] [id number]) OT- Bed Mobility Assessment Supine to Sit Supine to Sit Assist Independent Sit to Supine Sit to Supine Assist Independent OT-Transfer Assessment Sit to and From Stand Sit to and from Stand Standby Assistance Technique Transfer Destination Bed Transfer Technique Stand Step Pivot Devices Transfer Assistive Devices Gait Belt,Front Wheeled Walker Comments Mobility Comments Pt independent with bed mobility and able to stand up with the FWW and take a few side steps to the head of the bed. OT- Balance Assessment Sitting Balance and Reactions Static Sitting Balance Ability Normal Dynamic Sitting Balance Ability Good Standing Balance and Reactions Static Standing Balance Ability Good Dynamic Standing Balance Ability Fair M8 OT- IP Objective Assessments Start: 12/15/22 13:57 Freq: Status: Active Protocol: Document 12/15/22 13:55 [facility] (Rec: 12/15/22 14:10 [facility] [id number]) OT Gross Range of Motion Upper Extremity Range of Motion Assessment Within Functional Limits OT-Muscle Tone Assessment Muscle Tone WNL Yes M9 OT- IP Assessment and Plan Start: 12/15/22 13:57 Freq: Status: Active Protocol: Document 12/15/22 13:55 [facility] (Rec: 12/15/22 14:10 [facility] [id number]) OT Summary Assessment and Plan Potential Rehabilitation Potential Excellent Analytic Complexity at Evaluation Low Summary OT Impairments Pain,Functional Mobility, Bathing,Shower Transfers Progress Towards Goals Progressing Toward Goals Assessment Summary Pt low complexity and so far doing well and able to follow her hip precautions for ADl and mobility needs. Pt looking to go home when medically stable. Pt has good family assist at home and have outpt PT. Goals Dressing Goal Independent Toileting Goal Independent Bathing Goal Independent Toilet Transfer Goal Independent Shower Transfer Goal Independent Days to Meet Goals 2 Frequency of Treatment Frequency Of Treatment Once a Day Treatment Plan OT Treatment Plan ADL Training,Functional Mobility,Patient/Family Education,Discharge Planning Discharge Recommendations OT Discharge Recommendations Home with Assistance, Outpatient PT Transportation Needs at Discharge Private Vehicle
--- NOTE | 2022-12-15 15:00 | PT.IPTN ---
Current Diagnoses Unilateral primary osteoarthritis, right hip (12/15/22) Surgery Performed Operation Date: 12/15/22 07:45 Actual Procedures p Total Hip Arthroplasty/Anterior Approach(Right) - Yomaira Humphreys MD Physical Therapy Treatment Note M2 PT-IP Current Condition Start: 12/15/22 13:33 Freq: NEEDED Status: Active Protocol: Document 12/15/22 13:34 AB (Rec: 12/15/22 14:08 AB [id number]) Physical Therapy Current Condition Current Condition Evaluation Date 12/15/22 Treatment Diagnosis s/p right AD anterior approach Onset Date 12/15/22 M3 PT-IP Subjective Start: 12/15/22 13:33 Freq: NEEDED Status: Active Protocol: Document 12/15/22 16:21 AB (Rec: 12/15/22 16:38 AB [id number]) Subjective Physical Therapy Visit Type Type Treatment Note Visit Start Time 15:00 Visit Stop Time 15:16 Total Visit Minutes 16 Notes Pt present semi supine in bed and is agreeable to treatment session this afternoon. Number of FILM MAKER Visits 0 Physical Therapy Visit Comments Patient Comments The pt reports she is not having much pain and that her numbness has improved but she still feels it. Patient Goals She would still like to go home today and sleep in her own bed. Therapy Pain Assessment Pain When Pain Assessed During Mobility Pain Present Pain Present Denied Pain M4 PT-IP Mobility and Gait Start: 12/15/22 13:33 Freq: NEEDED Status: Active Protocol: Document 12/15/22 16:21 AB (Rec: 12/15/22 16:38 AB [id number]) PT-Bed Mobility Assessment Rolling Level of Assist Independent Supine to Sit Supine to Sit Independent Sit to Supine Sit to Supine Independent Scooting Scooting to Edge of Bed Independent PT-Transfer Assessment Sit to and From Stand Sit to and from Stand Independent,Use of Upper Extremities Equipment Transfer Assistive Device Gait Belt,Front Wheeled Walker Transfers Transfer Destination Bed,Toilet Transfer Technique Stand Step Pivot Transfer Ability Level of Assist Independent,Use of Upper Extremities Gait Assessment Gait Gait Assistance Required: Standby Assistance Distance (Feet) 150 Assistive Devices Assistive Device Gait Belt,Front Wheeled Walker Gait Deviations General Gait Pattern Antalgic,Decreased Stride Length Factors Limiting Gait Function Factors Limiting Gait Function Decreased Activity Tolerance, Decreased Strength,Limited Range of Motion Comments Gait Comments Gait deviations are secondary to surgical procedure and precautions. Stair Climbing Assessment Evaluation Level of Assist On Stairs Standby Assistance,1 Person Assistance Devices Stair Climbing Assistive Devices Left Railing,Right Railing Technique/Endurance Stair Climbing Direction Ascend and Descend Stair Climbing Technique Step to Step Number of Steps Climbed 3 Stair Climbing Set # Repetitions (reps) 1 Comments Stair Climbing Comments Pt was educated to ascend leading with non surgical LE and to descend leading with surgical LE. PT-Balance Assessment Sitting Balance and Reactions Static Sitting Balance Ability Normal Dynamic Sitting Balance Ability Normal Standing Balance and Reactions Static Standing Balance Ability Normal Dynamic Standing Balance Ability Normal M5 PT-IP Objective Assessments Start: 12/15/22 13:33 Freq: NEEDED Status: Active Protocol: Document 12/15/22 16:21 AB (Rec: 12/15/22 16:38 AB [id number]) Orientation Orientation/Cognition Level of Alertness Alert Orientation Name,Date,Place,Situation Language Function Ability No Deficits Noted Safety Awareness Understands Safety Issues Memory Description No Deficits Noted Gross Range of Motion Upper Extremity ROM Assessment Within Functional Limits Lower Extremity ROM Assessment Right Impaired Strength Upper Extremity Strength Assessment Within Functional Limits Lower Extremity Strength Assessment Right Impaired M6 PT-IP Treatment Start: 12/15/22 13:33 Freq: NEEDED Status: Active Protocol: Document 12/15/22 13:34 AB (Rec: 12/15/22 14:08 AB [id number]) Physical Therapy Treatment Exercises Exercises Ankle Pumps,Seated Knee Flexion/Extension Education Education Provided Precautions,Weight Bearing Status,Post-Op Packet,Safety Brace Education Patient Other Treatments Other Treatment Performed At start of session, the pt's BP is 132/65 mmHg. She denies any symptoms when performing functional mobility. At end of session, the pt returned to bed and into comfortable position with all needs met, call light within reach, and at bedside. RN was notified of findings. M7 PT-IP Assessment and Plan Start: 12/15/22 13:33 Freq: NEEDED Status: Active Protocol: Document 12/15/22 16:21 AB (Rec: 12/15/22 16:38 AB [id number]) PT Summary Assessment and Plan Potential Rehabilitation Potential Excellent Status of Condition at Evaluation Stable Summary Impairments Pain,Strength,Transfers,Gait, Activity Tolerance Progress Towards Goals Progressing Toward Goals Assessment Summary The pt was seen this afternoon in order to assess her ability to ambulate household and/or community distances and to determine her ability to ascend/descend stairs. The pt was able to ambulated 150ft with FWW and SBA, demonstrating gait impairments consistent with her surgical procedure. She did not have any instances of LOB, though reported the numbness in her RLE made her feel a little unsteady while ambulating. The pt was able to safely ascend and descend 3 steps using 2 hand rails and SBA, but requiring cueing for proper sequencing. The pt was again educated on safety with functional mobility and use of modalities to modulate pain. Towards the end of the session , the pt required use of the bathroom and demonstrated good transfer technique to and from toilet using FWW. At end of session, the pt returned to chair and once PT needs were met, she was handed off to RN. PT continues to recommend discharge to home and outpatient PT once she is cleared medically. Goals Bed Mobility Goal Independent Transfer Goal Independent Gait Goal Independent Gait Distance 200 Other Goals Pt to be able to ascend and descend 3 steps with use of 2 hand rails with SBA or independent to improving LE strength to be able to return to home safely. Days to Meet Goals 5 Frequency of Treatment Frequency Of Treatment Twice a Day Treatment Plan Physical Therapy Treatment Plan Transfer Training,Gait Training,Therapeutic Exercise, Balance Retraining,Post Op Education,Discharge Planning, Hot or Cold Pack,Neuromuscular Re-ed Other Recommendations and Next Treatment Therapeutic activity or Focus therapeutic exercises to improve LE strength and endurance. Precautions Anterior Hip Precautions No Hip Extension,No Hip External Rotation Weight Bearing Status Weight Bearing Status Weight Bear as Tolerated Recommendations To Nursing Amount of Assist Needed Standby Assistance Discharge Recommendations PT Discharge Recommendations Home,Outpatient PT Transportation Needs at Discharge Private Vehicle
--- NOTE | 2022-12-15 19:57 | PC.NURSE ---
Patient discharged at 19:51, discharge instructions reviewed with patient and all questions answered. Transported down to private vehicle via wheelchair, spouse present.
== END 2022-12-15 19:51 | disposition home or self-care (01) ==
LOC: OR 06:33 → AC 06:39
PROVIDERS: PCP Family Medicine; Referring Provider Orthopaedic Surgery; Visit Provider Orthopaedic Surgery
PROC: (CPT 27130; principal; 2022-12-15 07:45)
DX: M16.11 Unilateral primary osteoarthritis, right hip (principal)
CPT/HCPCS: 27130; 73502; 76000; 97161; 97165; 97530; 97535; C1776; C9290; J0171; J0690; J1100; J2405; J2704

== ENCOUNTER 2023-07-13 08:20 | Day surgery (SDC) | payer OTHER, SELFPAY ==
[2022-12-15 06:42] VITALS: BMI 28.8
--- NOTE | 2023-07-13 | PATH_ITS ---
[facility] Accession Number: [id number] No. of containers..01 Tissue . 01 Material submitted: . colon - SIGMOID POLYP . 01 Diagnosis: SIGMOID POLYP: Colonic mucosa with benign lymphoid aggregate. No neoplasm identified. [facility] 07/16/2023 1426 Local . 01 Electronically signed: . Teddy Phan MD, Pathologist NPI- [id number] . 01 Gross description: . SIGMOID POLYP: Received in formalin is 1 fragment(s) of wal[place], soft tissue measuring 0.3 x 0.2 x 0.2 cm submitted entirely in 1 cassette(s) /BEATRIZ 07/16/2023 [facility] Local . 01 Pathologist provided ICD-10: K63.89 . 01 CPT . 516699 Specimen Comment: A courtesy copy of this report has been sent to [phone] Performed at: 01 [facility] [address] [place] [address], [place], [place] [id number] MD Teddy Phan MD Phone: [phone]
[2023-07-13 01:07] VITALS: BP 94/59; PULSE 74; RESP 16; O2SAT 97
[2023-07-13 08:43] VITALS: BP 114/71; PULSE 80; RESP 17; TEMP 36.2; O2SAT 98
[2023-07-13] MEDS: LACTATED RINGERS 1,000 ML 150 ML IV (08:48)
--- NOTE | 2023-07-13 09:27 | P.HP_ITS ---
History of Present Illness History of Present Illness Date Patient Seen: 07/13/23 Time Patient Seen: 09:27 Chief complaint: [facility] [place] [facility] [place] Narrative: 63-year-old woman here for screening colonoscopy. Last colonoscopy 10 years ago normal. No family history of intestinal malignancy. No abdominal concerns today. [facility] Medical History Prolapse of vaginal eng Partial tear of rotator cuff Shoulder impingement Arthritis of glenohumeral joint Posterior vaginal wall prolapse Anesthesia Normal colonoscopy (~2012) Surgical procedure planned (~2012) Migraines Shoulder pain (~2007) Back pain (~2006) Surgical History Hx of cholecystectomy Hx of bladder repair surgery History of shoulder replacement History of prolapse of bladder Hx of cervical spinal arthrodesis Status post breast lumpectomy Status post hysterectomy Status post breast reduction Status post knee surgery History of carpal tunnel repair History of tonsillectomy Family History Father Age: 90 Emphysema/COPD Cancer Diabetes mellitus Heart disease Mother Age: 84 Diabetes mellitus Hypertension Grandmother Breast cancer Social History marital status: household members: spouse and children occupational status: employed Smoking Status: Former smoker alcohol intake: current substance use type: does not use Meds Home Medications and Allergies Home Medications Medication Instructions Recorded Confirmed Type clobetasol 0.05 % scalp solution 0.05 % topical BID #50 mL 05/27/18 07/13/23 Rx clobetasol 0.05 % topical ointment 1 applictn topical BID #30 grams 05/27/18 07/13/23 Rx fluticasone propionate 50 2 spray intranasal DAILY PRN 09/16/18 07/13/23 History mcg/actuation nasal Allergy Symptoms spray,suspension desonide 0.05 % lotion 0.05 % topical DAILY PRN itching 12/14/19 07/13/23 Rx #60 mL fexofenadine 180 mg tablet 180 mg PO DAILY 04/22/20 07/13/23 History rizatriptan 10 mg tablet See Rx Instructions PO .COMPLEX 11/23/22 07/13/23 History PRN Headache zolpidem 5 mg tablet 5 mg PO BEDTIME #30 tabs 02/01/23 07/13/23 Rx estradiol 0.01% (0.1 mg/gram) 1 g vaginal 2XW #42.5 grams 03/09/23 07/13/23 Rx vaginal cream lamotrigine 50 mg tablet,extended 150 mg (3 x 50 mg) PO DAILY #90 04/01/23 07/13/23 Rx release 24 hr tabs diclofenac sodium 75 mg 75 mg PO BID #180 tabs 05/03/23 07/13/23 Rx tablet,delayed release gabapentin 300 mg capsule 300 mg PO 3XD PRN hot flashes #30 07/13/23 07/13/23 Rx caps Allergies Allergy/AdvReac Type Severity Reaction Status Date / Time latex [LATEX] Allergy Mild IRRITATION Verified 07/13/23 08:42 TO HANDS Sulfa (Sulfonamide Allergy Mild HIVES Verified 07/13/23 08:42 Antibiotics) [SULFA (SULFONAMIDE ANTIBIOTICS)] Exam Vital Signs (past 8 hours): - 07/13/23 08:43 Temperature 97.1 F L Pulse Rate 80 Respiratory Rate 17 Blood Pressure 114/71 Pulse Oximetry 98 Oxygen Delivery Method Room Air Oxygen Delivery Method Room Air Narrative Exam Narrative: General adult woman alert oriented no acute distress Chest nonlabored respiration Extremities warm well perfused Assessment & Plan Assessment & Plan narrative: The patient requires colorectal screening and colonoscopy is recommended. Technical details were discussed. Risks, benefits, alternatives explained. Risks including but not limited to myocardial infarction, aspiration, bleeding, pain, missed lesion, incomplete examination, need for further radiographic studies, colonic perforation, and need for major abdominal surgery were discussed. All questions were answered to their satisfaction, and they are in agreement with this plan.
--- NOTE | 2023-07-13 09:40 | P.OP.COLON_ITS ---
Operative Date/Time/Diagnoses Date of procedure: 07/13/23 Time of procedure: 10:13 Pre-op diagnosis: Colorectal screening Procedure & Clinicians Study performed: Colonoscopy and polypectomy Same procedure as scheduled: Yes Indications: Colorectal screening Surgeon: Logan Roger Procedure Notes Procedure in detail: The history and physical was performed/updated and the patient is ASA class is 2. The procedure was discussed in detail with the patient. Potential risks complications including infection, bleeding, missed diagnosis, perforation, need for surgery, and were explained. Their questions were answered and informed consent was obtained. Patient was brought to the procedure room and placed standard monitoring equipment. The patient's vital signs were monitored continuously throughout the entire procedure. Prior to starting time-out was performed. The patient was placed in the left lateral recumbent position. Procedural sedation was administered by anesthesia. Examination began with a thorough inspection of the perianal area there was no evidence of fissures, fistulae, external hemorrhoids or cutaneous malignancy. The colonoscopy scope was then placed into the anal canal and was advanced to the cecum, which was identified by the ileocecal valve, the appendiceal orifice and the confluence of the taenia. The scope was then slowly withdrawn examining colon thoroughly in all directions, irrigating it of any residual stool. The scope was retroflexed within the rectum The patient tolerated the procedure well. They will be discharged once criteria are met. The prep was of good/excellent quality. The withdrawl time was 7 mi nutes. FINDINGS * Sigmoid-3 mm polyp removed with biopsy forceps * Descending colon moderate diverticulosis Specimen(s): other (Sigmoid polyp) Complications: none Impression: Colonic polyp x1 Post-procedure Recommendations: High fiber diet Plan for aftercare: Follow-up dependent on pathology findings
[2023-07-13 10:02] VITALS: BP 89/50; PULSE 72; RESP 17; TEMP 36.7; O2SAT 96
[2023-07-13 10:07] VITALS: BP 94/59; PULSE 75; RESP 17; O2SAT 97
[2023-07-13 10:12] VITALS: BP 97/66; PULSE 85; RESP 19; O2SAT 99
[2023-07-13 10:16] VITALS: BP 106/63; PULSE 72; RESP 17; TEMP 36.7; O2SAT 98
== END 2023-07-13 10:30 | disposition home or self-care (01) ==
PROVIDERS: PCP Family Medicine; Referring Provider Surgery; Visit Provider Surgery
PROC: 0DJD8ZZ Inspection of Lower Intestinal Tract, Via Natural or Artificial Opening Endoscopic (ICD-10-PCS; CPT 45378; principal; 2023-07-13 09:15)
DX: Z12.11 Encounter for screening for malignant neoplasm of colon (principal); K57.30 Diverticulosis of large intestine without perforation or abscess without bleeding; K63.5 Polyp of colon
CPT/HCPCS: 45380; J2704

== ENCOUNTER → 2023-07-26 15:09 | Outpatient (CLI) | payer OTHER, SELFPAY ==
[2022-12-15 06:42] VITALS: BMI 28.8
--- NOTE | 2023-07-26 15:10 | DI.MG.S_ITS ---
BILATERAL DIGITAL SCREENING MAMMOGRAM 3D/2D WITH CAD: 07/26/2023 CLINICAL: Routine screening. Family history of breast cancer. Comparison is made to exams dated: 04/13/2022 mammogram, 02/06/2021 mammogram, 11/20/2019 mammogram, and 10/03/2018 mammogram - [facility]. There are scattered areas of fibroglandular density in both breasts (category b / 25%-50% glandular tissue). Current study was also evaluated with a Computer Aided Detection (CAD) system. No significant masses, calcifications, or other findings are seen in either breast. There has been no significant interval change. IMPRESSION: NEGATIVE There is no mammographic evidence of malignancy. A 1 year screening mammogram is recommended. Based on the Tyrer Cuzick model (a risk assessment model) the patient's lifetime risk is 7.6% and her 10 year risk is 3.2%. According to the ACR, ACS, and NCCN guidelines, an annual breast MRI exam along with mammogram is recommended if the patient's lifetime risk is 20% or greater. This exam was interpreted at Station ID: [id number]. NOTE: For mammograms, a report in lay terms will be sent to the patient. Approximately 15% of breast malignancies will not be visualized mammographically. In the management of a palpable breast mass, a negative mammogram must not discourage biopsy of a clinically suspicious lesion. Electronically Signed By: Altaf domingo/tania:07/27/2023 10:07:45 letter sent: Normal Exam ACR BI-RADS Category 1: Negative [id number]
== END ==
PROVIDERS: PCP Family Medicine; Referring Provider Family Medicine; Visit Provider Family Medicine
DX: Z12.31 Encounter for screening mammogram for malignant neoplasm of breast (principal); Z80.3 Family history of malignant neoplasm of breast; R92.323 Mammographic fibroglandular density, bilateral breasts
CPT/HCPCS: 77063; 77067

== ENCOUNTER → 2023-08-23 09:54 | Outpatient (CLI) | payer OTHER, SELFPAY ==
[2022-12-15 06:42] VITALS: BMI 28.8
[2023-08-23 11:48] LABS: Alanine Aminotransferase 25 IU/L (<35); Albumin 4.4 g/dL (3.5-5.0); Alkaline Phosphatase 74 U/L (38-126); Aspartate Aminotransferase 25 IU/L (14-36); Bilirubin Total 0.5 mg/dL (0.2-1.3); Blood Urea Nitrogen 20 mg/dL (7-17); Calcium 9.2 mg/dL (8.4-10.2); Carbon Dioxide 27 mmol/L (22-32); Chloride 107 mmol/L (98-107); Estimated Glomerular Filt Rate > 60 mL/min (>60); Glucose 98 mg/dL (80-110); HEMOLYSIS < 15 (0-50); Potassium 4.2 mmol/L (3.4-5.1); Sodium 140 mmol/L (137-145); Total Protein 6.7 g/dL (6.3-8.2)
[2023-08-23 11:49] LABS: Albumin Globulin Ratio 1.9 (1.0-2.8); Cholesterol 200 mg/dL (140-199); Globulin 2.3 g/dL (1.7-4.1); HDL Cholesterol 72 mg/dL (40-60); LDL Cholesterol Calculated 107 mg/dL (<100); Triglycerides 107 mg/dL (35-150)
== END ==
PROVIDERS: PCP Family Medicine; Referring Provider Family Medicine; Visit Provider Family Medicine
DX: Z13.220 Encounter for screening for lipoid disorders (principal)
CPT/HCPCS: 36415; 80053; 80061

== ENCOUNTER → 2023-09-24 16:39 | Outpatient (CLI) | payer OTHER, SELFPAY ==
[2022-12-15 06:42] VITALS: BMI 28.8
== END ==
PROVIDERS: PCP Family Medicine; Visit Provider Obstetrics & Gynecology
DX: N89.8 Other specified noninflammatory disorders of vagina (principal)
CPT/HCPCS: 87070; 87205; 87255

== ENCOUNTER → 2024-09-01 07:59 | Outpatient (CLI) | payer OTHER, SELFPAY ==
[2022-12-15 06:42] VITALS: BMI 28.8
--- NOTE | 2024-09-01 08:01 | DI.MG.S_ITS ---
MM screening mammo BI: 09/01/2024. BI-RADS: 1 CLINICAL: 64-year old female for bilateral screening mammogram. Tyrer-Cuzick lifetime risk of 9.2%. No personal or first-degree family history of breast cancer. Current reported family history of breast cancer: paternal grandmother and maternal aunt's daughter. The patient had a prior left breast biopsy. The patient is status-post reduction mammoplasty. The patient had a mastopexy in both breasts. PRIOR EXAMS 07/26/2023, 04/13/2022, 02/06/2021, 11/20/2019, 10/03/2018, 09/20/2017, 06/01/2016, 05/22/2015. MAMMOGRAPHY TECHNIQUE: 2D and 3D (tomosynthesis) digital mammographic views obtained, with additional images as needed for full coverage. Current study was also evaluated with a Computer Aided Detection (CAD) system. DENSITY A. The breasts are almost entirely fatty. MAMMOGRAPHY FINDINGS Bilateral: No suspicious mass, asymmetry, microcalcification, or other abnormality seen. IMPRESSION: * No evidence of malignancy. RECOMMENDATIONS Bilateral * Annual screening mammography. OVERALL ASSESSMENT CATEGORY BI-RADS-1: Negative. The [employer] recommends annual screening mammography beginning at age 40 for women with average risk of breast cancer. ELECTRONICALLY SIGNED: Sincere Klein M.D. on 09/01/2024 at 05:15:21 PM PT Interpreting Station ID: [id number]
== END ==
PROVIDERS: PCP Family Medicine; Referring Provider Family Medicine; Visit Provider Family Medicine
DX: Z12.31 Encounter for screening mammogram for malignant neoplasm of breast (principal); Z80.3 Family history of malignant neoplasm of breast; R92.313 Mammographic fatty tissue density, bilateral breasts
CPT/HCPCS: 77063; 77067

== ENCOUNTER → 2024-09-18 12:03 | Outpatient (CLI) | payer OTHER, SELFPAY ==
[2022-12-15 06:42] VITALS: BMI 28.8
--- NOTE | 2024-09-18 12:56 | EKG_ITS ---
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
[2024-09-18 13:04] LABS: Add Manual Diff / Slide Review NO; Basophils Absolute Auto 0 /uL (0-100); Basophils Percent Auto 0.8 % (0-2); Eosinophils Absolute Auto 100 /uL (0-450); Eosinophils Percent Auto 1.3 % (2-4); Hematocrit 41.4 % (36-46); Lymphocytes Absolute Auto 1500 /uL (1100-4500); Lymphocytes Percent Auto 28.8 % (25-40); Mean Corpuscular HGB Conc 33.8 % (30-36); Mean Corpuscular Hemoglobin 30.9 PG (26-34); Mean Corpuscular Volume 91.2 fL (80-100); Monocytes Absolute Auto 400 /uL (0-900); Monocytes Percent Auto 7.1 % (3-14); Neutrophils Absolute Auto 3100 /uL (1500-7000); Platelet Count 287 X10^3/uL (150-400); Red Blood Cell Count 4.54 X10^6/uL (4.0-5.2); Red Cell Distribution Width 13.1 % (11.6-14.8); White Blood Cell Count 5.1 X10^3/uL (4.5-11.0)
[2024-09-18 13:13] LABS: Hemoglobin A1C% w Est Avg Glu 5.1 % (4.0-6.0)
[2024-09-18 13:27] LABS: Blood Urea Nitrogen 15 mg/dL (7-17); Calcium 9.3 mg/dL (8.4-10.2); Carbon Dioxide 24 mmol/L (22-32); Chloride 102 mmol/L (98-107); Estimated Glomerular Filt Rate > 60 mL/min (>60); Glucose 94 mg/dL (70-99); HEMOLYSIS < 15 (0-50); Sodium 136 mmol/L (137-145)
[2024-09-18 15:24] LABS: Appearance Urine UA SL CLOUDY; Bilirubin Urine UA NEGATIVE (NEGATIVE); Color Urine UA YELLOW; Glucose Urine UA NEGATIVE (Negative); Ketones Urine UA NEGATIVE (NEGATIVE); Leukocyte Esterase Urine UA NEGATIVE (NEGATIVE); Nitrite Urine UA NEGATIVE (Negative); Occult Blood Urine UA NEGATIVE (Negative); Protein Urine UA NEGATIVE (Negative); Specific Gravity Urine UA <=1.005 (1.000-1.035); Urobilinogen Urine UA 0.2 E.U./dL (0.2)
[2024-09-18 15:28] LABS: pH Urine UA 6.5 (4.5-8.0)
[2024-09-18 15:30] LABS: Bacteria Urine Many (>30); Culture Indicated Urine Cult Not Indicated; RBC Urine 0-1/HPF (0-5/HPF); Squamous Epithelial Cell Urine 5-10 /HPF (0-5/HPF); Urine Volume Low Vol <10mL unspun; WBC Urine 0-1/HPF (0-5/HPF)
== END ==
PROVIDERS: PCP Family Medicine; Referring Provider Orthopaedic Surgery; Visit Provider Orthopaedic Surgery
DX: N39.0 Urinary tract infection, site not specified (principal); R73.9 Hyperglycemia, unspecified; Z01.812 Encounter for preprocedural laboratory examination; Z01.818 Encounter for other preprocedural examination
CPT/HCPCS: 36415; 80048; 81001; 83036; 85025; 93005

== ENCOUNTER → 2025-01-09 09:06 | Outpatient (CLI) | payer OTHER, SELFPAY ==
[2022-12-15 06:42] VITALS: BMI 28.8
[2025-01-09 12:44] LABS: Appearance Urine UA CLEAR; Bilirubin Urine UA NEGATIVE (NEGATIVE); Color Urine UA YELLOW; Glucose Urine UA NEGATIVE (Negative); Ketones Urine UA NEGATIVE (NEGATIVE); Leukocyte Esterase Urine UA NEGATIVE (NEGATIVE); Nitrite Urine UA NEGATIVE (Negative); Occult Blood Urine UA NEGATIVE (Negative); Protein Urine UA NEGATIVE (Negative); Specific Gravity Urine UA 1.020 (1.000-1.035); Urobilinogen Urine UA 0.2 E.U./dL (0.2)
[2025-01-09 12:50] LABS: pH Urine UA 5.5 (4.5-8.0)
[2025-01-09 13:04] LABS: Culture Indicated Urine Cult Not Indicated
== END ==
PROVIDERS: PCP Family Medicine; Visit Provider Obstetrics & Gynecology Gynecology
DX: R32 Unspecified urinary incontinence (principal); N81.11 Cystocele, midline; Z98.890 Other specified postprocedural states; N81.6 Rectocele
CPT/HCPCS: 51701; 81001; 99214

== ENCOUNTER 2025-03-12 07:28 | Day surgery (SDC) | payer OTHER, SELFPAY ==
[2022-12-15 06:42] VITALS: BMI 28.8
[2025-03-06 08:42] VITALS: BMI 29.2
--- NOTE | 2025-03-07 16:20 | P.HPOB_ITS ---
History of Present Illness History of Present Illness Narrative: Shelby Chandler is a 64 year old female Date of procedure:?? March 12, 2025 Preoperative diagnosis:? 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 Robotic laparoscopic sacral colpopexy, with bilateral oophorectomy Cystoscopy Possible mid urethral sling Note, still has both ovaries Latex allergy Uses diclofenac 75 mg b.i.d., we will stop before surgery Postop Meds Tylenol 1000 mg, ?3 times a day? Uses diclofenac 75 mg b.i.d. Oycodone 5 mg,? take 1 pill every 4-6 hr as needed, # 10 ? Colace,? 1 pill BID, for constipation CC: Recurrent prolapse HPI: 64-year-old female who presents for evaluation of above complaint.?? She reports onset of symptoms years ago.?? She considers this a? Moderate? problem. She has had prolapse for many years, has had prior surgery twice, currently treated with a pessary, interested in another surgery as the pessary is not adequately treating her symptoms. She has prolapse symptoms of vaginal bulge, pressure, heaviness, occasionally needing to splint the perineum for bowel movements, straining for bowel movements, incomplete bladder emptying, slow urinary stream. She underwent a vaginal hysterectomy for uterine prolapse in 2009. In 2020, she underwent an anterior and posterior colporrhaphy. Over the last couple years she has been using a pessary to treat recurrent prolapse. Initially that was helpful but she is having more prolapse symptoms and is here to discuss surgical options. Surprisingly, on exam, her prolapse does not seem severe. Early stage II cystocele and rectocele with no vaginal vault prolapse. We will have her return to clinic with the pessary out for at least 2 or 3 days and do a repeat pelvic exam to try to see if her prolapse is more severe then is demonstrated today She has some mild urinary incontinence symptoms, leaks about 3 times per week, has 3 different sets of triggers, occasionally has postvoid dribbling. He is unsure if she empties her bladder. Also leaks with urge on the way to the toilet with the 1st morning void sometimes. Also sometimes leaks with stress incontinence triggers below. Overall this is mild. Uses 1 mini pad a day. No specific surgery or medications used for stress incontinence. She has done physical therapy and does Kegel's. She voids every 4 hours in the day and 0 at night. She does have a slow stream Prior surgeries to the abdomen include the vaginal hysterectomy and a laparoscopic cholecystectomy that may have significant adhesions in the upper abdomen as she was in the hospital for 4 days around the time of that surgery due to stones and pancreatitis prior hyst -yes -x3 c-sec -times 0 Pelvic Floor Review of Systems: (HPI) Stress Urinary Incontinence symptoms (DANNIE): Once or twice a week Triggers include: Cough, sneeze, laugh. ? Urge Incontinence symptoms (Urge UI): Once or twice a week, 1st morning void Triggers include: Full bladder with urge ? Pads: She wears 1 mini pad daily, just mildly wet with drops Overactive Bladder symptoms (OAB):? ? Frequency:?? Every 4 hours Nocturia:?? 0 Urgency:?? 0 mostly Prior incontinence treatment includes:? Medical:? 0 Surgical:? No? Kegels:?? Yes Physical therapy:?No? Pessary:?No? Diet / Fluids: Fluid restriction:? No Excessive fluids:?No Pain symptoms:? Painful bladder:???No Dysuria:??? No Dyspareunia:? No Dysmenorrhea:? No Urinary Risk Factors UTI?s, recurrent:? 0 Hematuria:? No Kidney Stones:?No? Tobacco use:? No Pelvic Organ Prolapse (POP) symptoms:?? Bulge:?Yes Pressure and /or? Heaviness:?Yes Splint for defecation or voiding:???Yes for splinting for defecation Voiding dysfunction: Abnormal stream:? No Strain to void:? No Incomplete emptying:?No Voiding difficulty:? No Retention:??? No Bowel Function: Constipation:?Yes Strain to defecate:?25-50% of the time Fiber:?No Laxatives:?No Fecal Incontinence:? Liquid stool:? No Solid stool:?No?? Sexual function Sexually active:? No Incontinence with sex:? No ? 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 Pertinent positives listed above in HPI All others reviewed and negative. . . [facility] [place] Medical History (Updated 01/09/25 @ 11:09 by Dale Owen MD) Rectocele Prolapse of vaginal eng Partial tear of rotator cuff Shoulder impingement Arthritis of glenohumeral joint Posterior vaginal wall prolapse Anesthesia Normal colonoscopy (~2012) Surgical procedure planned (~2012) Migraines Shoulder pain (~2007) Back pain (~2006) Surgical History Hx of cholecystectomy Hx of bladder repair surgery History of shoulder replacement History of prolapse of bladder Hx of cervical spinal arthrodesis Status post breast lumpectomy Status post hysterectomy Status post breast reduction Status post knee surgery History of carpal tunnel repair History of tonsillectomy Allergies latex (LATEX) Allergy (Mild, Verified 02/27/25 08:25) IRRITATION TO HANDS Sulfa (Sulfonamide Antibiotics) (SULFA (SULFONAMIDE ANTIBIOTICS)) Allergy (Mild, Verified 02/27/25 08:25) HIVES Medications fluticasone propionate 50 mcg/actuation nasal spray,suspension 2 spray intranasal DAILY PRN Allergy Symptoms 09/16/18 [History Confirmed 02/27/25] rizatriptan 10 mg tablet See Rx Instructions PO .COMPLEX PRN Headache 11/23/22 [History Confirmed 02/27/25] estradiol 0.01% (0.1 mg/gram) vaginal cream 1 g vaginal 2XW #42.5 grams 03/09/23 [Rx Confirmed 02/27/25] clobetasol 0.05 % scalp solution 1 applic topical BID #50 mL 10/26/23 [Rx Confirmed 02/27/25] clobetasol 0.05 % topical ointment 1 applic topical BID #30 grams 10/26/23 [Rx Confirmed 02/27/25] desonide 0.05 % lotion 1 applic topical DAILY PRN for itch #59 mL 10/26/23 [Rx Confirmed 02/27/25] gabapentin 300 mg capsule 300 mg PO 3XD PRN hot flashes #270 caps 08/29/24 [Rx Confirmed 02/27/25] diclofenac sodium 75 mg tablet,delayed release 75 mg PO BID #180 tabs 11/01/24 [Rx Confirmed 02/27/25] lamotrigine 50 mg tablet,extended release 24 hr 150 mg (3 x 50 mg) PO DAILY #270 tabs 12/13/24 [Rx Confirmed 02/27/25] minoxidil 2.5 mg tablet 2.5 mg PO DAILY 01/09/25 [History Confirmed 02/27/25] zolpidem 5 mg tablet 5 mg PO BEDTIME #30 tabs 01/15/25 [Rx Confirmed 02/27/25] oxycodone 5 mg tablet 5 mg PO Q8H PRN pain #10 tabs 02/27/25 [Rx Confirmed 02/27/25] Family History Father Age: 90 Emphysema/COPD Cancer Diabetes mellitus Heart disease Mother Age: 84 Diabetes mellitus Hypertension Grandmother Breast cancer Social History marital status: household members: spouse and children occupational status: employed Tobacco & Substance Use Smoking Status: Former smoker alcohol intake: current substance use type: does not use Exam Vitals 02/28/2508:27 Height 5 ft 7.5 in Weight 187 lb BMI 28.8 BP 120/69 Blood Pressure Location Rt radial Position Sitting Pulse 69 Pulse Source Monitor Pulse Oximetry (%) 97 Oxygen Delivery Method room air General: healthy, alert, coherent, no acute distress, cooperative, nontoxic Pulmonary: normal breathing, no distress Abdomen: soft, no mass, non-distended, no hernia, non-tender Skin: Scars on Abd: scope Vulva: Normal labia majora, labia minora, introitus, and clitoris, non-tender Urethra meatus: normal, no discharge Perineum: Normal, non-tender Urethra: No mass, non-tender Bladder: no mass, non-tender Vagina: No lesions, no discharge, min atrophy, non-tender Prolapse stage II cystocele and rectocele, good vaginal vault support. Due to the mismatch of her symptoms and her mild prolapse, recommend doing a repeat examination with the pessary out for at least 2 or [address] days[address] was in place today Levators: Non-tender, hyst Bimanual: no mass, no adnexal mass, non-tender Anus: No lesion, non-tender, no hemorrhoid Empty Cough Stress test: Neg PVR: 50 mL by catheter Urethral angle hypermobile: Yes POP-Q Exam: Aa: -0.5 Ba: -0.5 Ap: -1 Bp: -1 C: -9 D: Not applicable TVL: 11 GH: 2.5 PB: 3.0 Introitus size: X2 fingerbreadths Cystocele stage: Stage II A Rectocele stage: Stage II A Uterine/Vault Prolapse Stage: Stage 0-1 Assessment & Plan (1) Cystocele, midline: Status: Acute (2) Rectocele: Assessment and Plan ? Patient counseled regarding above conditions.? Educational materials given to patient. 1. Pelvic Organ Prolapse - Stage 2 cystocele rectocele.? This diagnosis and its etiology was discussed with the patient.? Treatment options were discussed including: expectant management, pessary trial, and surgical intervention. We briefly discussed risks and benefits of surgery. All surgery for prolapse is not 100% successful and there is a chance of recurrence or failure. Currently using a ring pessary, desires to move on to surgery Surprisingly, on exam, her prolapse does not seem severe. Early stage II cystocele and rectocele with no vaginal vault prolapse. We will have her return to clinic with the pessary out for at least 2 or 3 days and do a repeat pelvic exam to try to see if her prolapse is more severe then is demonstrated today my recommendation = we will wait until repeat pelvic exam to make final recommendation for surgery. At the moment it only looks like she needs a simple cystocele and rectocele repair, but her symptoms suggest she might need a laparoscopic sacral colpopexy HPI -see prior note from earlier this month. She had symptoms of severe prolapse. She was using a pessary. The exam with the pessary in place only revealed a mild cystocele. Her symptoms sounded much more severe. We asked her to make a follow up appointment and to leave the pessary out for a few days before the appointment so that we could see the full extent of her prolapse. She presents today for an exam to assess The prolapse. Her goal is to have definitive surgery for her prolapse. She has had 1 vaginal surgery fail before and her preference is to undergo a laparoscopic repair with mesh if that is indicated for her Exam below demonstrates a large cystocele with vaginal vault prolapse. The recommendation is robotic laparoscopic sacral colpopexy Given that she is at risk for postoperative stress incontinence we will make an intraoperative assessment for stress incontinence and treat as needed with a mid urethral sling. This was explained to her in detail. She agrees. See below for more counseling Exam ? today's POP-Q Exam: Aa: 0 Ba: +1 Ap: -2 Bp: -2 C: -7 D: Not applicable TVL: 11 GH: 3.0 PB: 3.0 ? Assessment / Plan: Pelvic Organ Prolapse - Stage 2, with large ballooning cystocele and vaginal vault prolapse. No significant rectocele This diagnosis and its etiology was discussed with the patient.? Treatment opt ions were discussed including: expectant management, pessary trial, and surgical intervention. We briefly discussed risks and benefits of surgery. All surgery for prolapse is not 100% successful and there is a chance of recurrence or failure. She declines a Pessary Trial for Prolapse, already using. she desires surgery my recommendation = robotic laparoscopic sacral colpopexy, cystoscopy, p ossible mid urethral sling. We also discussed vaginal surgery that would be quicker and less invasive but have higher failure rate and would avoid using mesh, She prefers the robotic laparoscopic sacral colpopexy see below for counseling 2. Urethral hypermobility She is at risk for postoperative stress incontinence from the prolapse repair. Studies show that in women with severe prolapse of the anterior vaginal wall, 25% will have significant stress incontinence, following prolapse repair surgery. So her risk of finding stress incontinence, as below, is 25%. Will plan to diagnose stress incontinence intra-operatively by filling the bladder with 200-300 cc of fluid, and then using a crede maneuver to see if there is leakage of fluid from the urethra. If there is leakage, then stress incontinence will be diagnosed, and she will be treated with a mid urethral sling. Surgical Counselling Note Patient seen for surgical counselling.? She desires surgical repair. Please see? H & P for exam and discussion. Date of procedure:?? March 12, 2025 Preoperative diagnosis:? 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 Robotic laparoscopic sacral colpopexy, with bilateral oophorectomy Cystoscopy Possible mid urethral sling Note, still has both ovaries Latex allergy Uses diclofenac 75 mg b.i.d., we will stop before surgery Postop Meds Tylenol 1000 mg, ?3 times a day? Uses diclofenac 75 mg b.i.d. Oycodone 5 mg,? take 1 pill every 4-6 hr as needed, # 10? Colace,? 1 pill BID, for constipation Patient counseled extensively about the Risks, Benefits, and Alternatives to surgery.? She was offered the opportunity to ask any questions, and all questio ns were answered. ? Surgical Risks include: Bleeding, Hemorrhage, Transfusion, Infection (especially wound or bladder), Injury to adjacent organs (especially bladder, ureter, bowel, blood vessels, ner ves), Postop or Chronic Pain, need for Reoperation, and Life-threatening event (especially M.I., CVA, PE, DVT). Procedure Risks include: Failure to Cure condition, Recurrence of condition months or years later, Urinary incontinence, Voiding dysfunction or Urinary Retention with prolonged catheter use, Poor wound healing, Erosions of any mesh or graft used, Dyspareunia, Vaginal scarring or narrowing, Need for additional surgery (immediate or delayed).? The expected cure and improvement and failure rates were discussed. Patient counseled to avoid the following for 6 weeks after surgery: (1) Impact sports (like running or jumping), walking and stairs OK (2) Lifting over 20# (3) Sexual intercourse No limits after 6 weeks. ? Good exercise tolerance, > 4 Mets. Her current medications were reviewed, and instructions given over which to use and which to discontinue before surgery.? Post-operative care instructions reviewed.? We discussed post-operative pain: Pain should be in the mild-moderate range, but can be moderate-severe for the first few days.?? Prescriptions will typically be given for (1) acetaminophen (Tylenol) and (2) non-steroidal anti-inflammatory drug (NSAID, like Motrin or Naprosyn), use both together, around the clock. Prescription will also be given for a (3) narcotic pain medication. Use the narcotic as needed, as a booster to the Tylenol and NSAID. You might need 0-4 narcotic pills a day typically. The narcotic will only be needed for a few days.?? Gradually use less of the narcotic, but continue the Tylenol and NSAID.? After a few days, the narcotic should no longer be needed, and only the Tylenol and NSAID will be needed.? Warm packs or cold packs can also be used for pain.??Do not drive for as long as you are using the narcotic pain medication? - this should only be a few days.?? Constipation is associated with use of narcotic pain medications, and can be improved with use of a stool softener, or fiber, or a mild laxative.? If you are sent home from the hospital with a Malave Catheter in place:? please call the office on the day after surgery We will usually remove the catheter 2-4 days after surgery: a. You will perform an at home Malave catheter removal -or- b. You will come in to the office for a voiding trial, (For some unusual surgeries, we might leave the catheter in for up to 2 weeks, and then remove it.) Instructions for at home Malave catheter removal..... For at-home Malave catheter removal, this can be done on postop day 2 or 3 or 4, depending on various factors. 1. At 6 or 7 a.m., have the patient cut the Malave catheter with scissors, while standing in a shower or bath tub. a. Cut the catheter right in the middle of the tubing, about 6 inches from the body. b. The sterile water that is inside the Malave balloon will leak all over the floor of the shower or bath tub. This is expected. c. The catheter will either fall out of the urethra, or just gently pull on it and it will come out. 2. Now, the bladder will gradually fill up over the next few hours. 3. Go ahead and empty the bladder when you feel an urge to void. Please note how strong the urine stream is. a. If the urine stream is normal or close to normal, then everything is good to go. b. If the urine stream is slow or you can not void, then return to the clinic in the afternoon. We will place another Malave catheter. We will repeat the voiding trial in 3-4 days. All of her questions were answered Dale Owen MD UroGynecology & Pelvic Reconstructive Surgery [facility] Medical History (Updated 01/23/25 @ 16:06 by Dale Owen MD) Urethral hypermobility Vaginal vault prolapse Rectocele Prolapse of vaginal eng Partial tear of rotator cuff Shoulder impingement Arthritis of glenohumeral joint Posterior vaginal wall prolapse Anesthesia Normal colonoscopy (~2012) Surgical procedure planned (~2012) Migraines Shoulder pain (~2007) Back pain (~2006) Surgical History (Updated 03/06/25 @ 08:42 by Eden Singh RN) S/P left unicompartmental knee replacement (10/09/24) S/P hip replacement (12/2022) Hx of cholecystectomy Hx of bladder repair surgery History of shoulder replacement History of prolapse of bladder Hx of cervical spinal arthrodesis Status post breast lumpectomy Status post hysterectomy Status post breast reduction Status post knee surgery History of carpal tunnel repair History of tonsillectomy Family History Father Age: 90 Emphysema/COPD Cancer Diabetes mellitus Heart disease Mother Age: 84 Diabetes mellitus Hypertension Grandmother Breast cancer Social History marital status: household members: spouse and children occupational status: employed Smoking Status: Former smoker alcohol intake: current substance use type: does not use Meds Home Medications and Allergies Home Medications ?Medication ?Instructions ?Recorded ?Confirmed ?Type fluticasone propionate 50 2 spray intranasal DAILY PRN 09/16/18 02/27/25 History mcg/actuation nasal Allergy Symptoms spray,suspension rizatriptan 10 mg tablet See Rx Instructions PO .COMP ARCELIA 11/23/22 02/27/25 History PRN Headache estradiol 0.01% (0.1 mg/gram) 1 g vaginal 2XW #42.5 gr ams 03/09/23 02/27/25 Rx vaginal cream clobetasol 0.05 % scalp solution 1 applic topical BID #50 mL 10/26/23 02/27/25 Rx clobetasol 0.05 % topical ointment 1 applic topical BI D #30 grams 10/26/23 02/27/25 Rx desonide 0.05 % lotion 1 applic topical DAILY PRN f or 10/26/23 02/27/25 Rx itch #59 mL diclofenac sodium 75 mg 75 mg PO BID #180 tabs 11/0102/27/25 Rx tablet,delayed release lamotrigine 50 mg tablet,extended 150 mg (3 x 50 mg) P O DAILY #270 12/13/24 02/27/25 Rx release 24 hr tabs minoxidil 2.5 mg tablet 2.5 mg PO DAILY 01/09/25 History zolpidem 5 mg tablet 5 mg PO BEDTIME #30 tabs 02/27/25 Rx oxycodone 5 mg tablet 5 mg PO Q8H PRN pain #10 tab s 02/27/25 02/27/25 Rx gabapentin 300 mg capsule 300 mg PO 3XD PRN hot flashe s #270 03/06/25 Rx caps Allergies Allergy/AdvReac Type Severity Reaction Status Date / Time latex (LATEX) Allergy Mild IRRITATION Verified 02/27/25 08:25 TO HANDS Sulfa (Sulfonamide Allergy Mild HIVES Verified 02/27/25 08:25 Antibiotics) (SULFA (SULFONAMIDE ANTIBIOTICS)) Assessment & Plan Time-Based Coding :: [TOTAL MINUTES] spent with patient and on the chart (including review of chart, obtaining history, exam, reviewing outside data, placing orders, documenting exam and treatment plan, and counseling patient) on [DATE].
[2025-03-12] VITALS (10 sets, daily range): BP systolic 90–133; BP diastolic 50–72; PULSE 71–88; RESP 11–20; TEMP 36.3–36.9; O2SAT 95–100
--- NOTE | 2025-03-12 | PATH_ITS ---
[facility] Accession Number: [id number] No. of containers..01 Tissue . 01 Material submitted: . fallopian tube - BILATERAL FALLOPIAN TUBES, BILATERAL OVARIES . 01 Diagnosis: BILATERAL FALLOPIAN TUBES AND BILATERAL OVARIES; BILATERAL SALPINGO-OOPHORECTOMY: Benign bilateral ovaries with corpora albicantia. Benign bilateral fallopian tubes and paratubal cysts. Negative for atypia or malignancy. [facility] 03/15/2025 1558 Local . 01 Electronically signed: . Orlando Olmstead MD, Pathologist NPI- [id number] . 01 Gross description: . Received in formalin with two patient identifiers and bilateral tubes and ovaries are two intact ovaries and two separate fallopian tubes. The first ovary is 3 g, 2.5 x 1.3 x 0.5 cm. The second ovary is 3 g, 1.8 x 1 x 0.6 cm. The first fallopian tube is 5 cm long by 0.5 cm in diameter, with multiple paratubal cysts up to 0.5 cm. The second fallopian tube is 3 cm long by 0.5 cm in diameter, with multiple paratubal cysts up to 0.2 cm. The cut surfaces are walden with pinpoint lumens. The cut surfaces of the ovaries are yellow-walden and grossly unremarkable. Director Of Kids sections are submitted as follows: . A1: First ovary and first fallopian tube with entire bisected fimbria. A2: Second ovary and second fallopian tube with entire bisected fimbria. ([id number]) /DANNY 03/13/2025 1844 Local . 01 Pathologist provided ICD-10: N81.11, N81.9, N36.41 . 01 CPT . 634878 Specimen Comment: A courtesy copy of this report has been sent to [facility] Pathology Performed at: [address] [address] [address] [facility], [place], [place] [id number] MD Teddy Phan MD Phone: [phone]
[2025-03-12] MEDS: PHENAZOPYRIDINE 100 MG TABLET 200 MG PO (08:43)
[2025-03-12] MEDS: ACETAMINOPHEN 325 MG TABLET 975 MG PO ×2 (08:43→16:40)
[2025-03-12] MEDS: SCOPOLAMINE 1 PATCH TOP (08:43)
[2025-03-12] MEDS: LACTATED RINGERS 1,000 ML 42 ML IV ×2 (08:55→13:44)
--- NOTE | 2025-03-12 09:08 | PM.PREOP ---
Pre-operative Note Interval Note History & Physical reviewed/Exam performed by Physician: Yes Changes to H&P: No
--- NOTE | 2025-03-12 10:16 | SUR.OPER ---
Lithotomy on padded OR bed. [place] Pad Positioner under torso. IV sites psdded, Head on pillow, arms padded and tucked at sides. Legs secured in padded yellow fins stirrups.
[2025-03-12] MEDS: LACTATED RINGERS 1,000 ML 120 ML IV (11:33)
[2025-03-12] MEDS: LIDOCAINE 1% W/EPI 10ML 20 ML INJ (13:51)
--- NOTE | 2025-03-12 14:29 | PM.GYNOP.1 ---
Operative Date/Time/Diagnoses Date of procedure: 03/12/25 Time of procedure: 10:00 Pre-op diagnosis: Cystocele, vaginal vault prolapse, desires prophylactic oophorectomy Post-op diagnosis: same (With stress incontinence) Procedure & Clinicians Procedure: Procedures Operation Date: 03/12/25 09:15 Actual Procedure Side Surgeon p Robotic Laparoscopic Sacral Colpopexy, Cystoscopy, Bilateral Oopherectomy and Salpingectomy Bilateral Dale Owen MD s Mid urethral sling Not Applicable Dale Owen MD Operative Notes Findings: Operative Note Surgeon:? Dale Owen MD Operating Room Manager: Concepcion Carlton MD Pre-Op Diagnosis:?? Vaginal vault prolapse, cystocele, stage II Desires prophylactic oophorectomy Potential stress urinary incontinence Post-Op Diagnosis:?? Vaginal vault prolapse, cystocele, stage II Desires prophylactic oophorectomy Stress urinary incontinence Procedure:?? Robotic assisted laparoscopic sacral colpopexy, Robotic laparoscopic bilateral salpingo-oophorectomy, TVT mid urethral sling, cystoscopy Findings (brief): 1. 5 ports, usual fashion. No significant Adhesions of omentum or bowel. Prior hysterectomy, both tubes and ovaries in place, normal except for small 2-3 mm cysts. Both removed bilaterally. There was an obvious enterocele at the apex as you could see the blue probe transilluminating through the very thin enterocele Vaginal fascia, anteriorly and posteriorly, at the apex, was reapproximated with 2-0 Vicryl in order to close over this defect. Also, on the left side there was a 3-4 mm full-thickness defect in the mucosa identified, closed with 2 sutures of 2-0 Vicryl 2.? Victor Hugo blue Y-mesh cut to 4 cm Ant and 7 cm Post, attached to vagina with sutures of 2-0 vicyrl.?? Excellent support of all 3 compartments.? 3.? Cystoscopy with normal bladder, ureters, urethra, no injury, bilateral ureteral jets.??? 4. The bladder was filled to 300 cc. A crede maneuver was done creating suprapubic pressure with obvious leakage of fluid from the urethra. Therefore stress incontinence was diagnosed. Therefore a sling was indicated 5. TVT sling placed at mid-urethra, tension-free.??Gel-Foam was placed into each sling tunnel for hemostasis. repeat Cystoscopy with normal bladder, ureters, urethra, no trocar injury, bilateral ureteral jets.? Date of Surgery:? March 12, 2025 Complications:? None Specimens:? Both tubes and ovary Anesthesia Technique:?? General endotracheal Estimated Blood Loss (mls):? 100, all with the sling Blood Replacement (mls):? None Drains:? Baker Condition:? Stable Procedure in detail: After consent was confirmed, the patient was taken to the operating room and?positioned with the [place] Pad on the OR bed, and then placed under general anesthesia without incident. ?Sequential compression devices were in place and active. ?She received perioperative antibiotics. ?The arms were tucked and her legs were placed in the dorsal lithotomy position using the Cameron stirrups. ??She was then prepped and draped in the usual sterile fashion. ?An examination under anesthesia was consistent with the preoperative assessment. ?A three-way 16 uk[place] baker catheter was placed. ?Attention was turned to the abdomen. All 5 trocar sites were injected with 0.25% Marcaine with epinephrine prior to incision. A supra-umbilical 8?mm port was placed 2-3 cm above the umbilicus: a 8?mm incision was made, the Veress needle was placed, and pneumoperitoneum was achieved at low flow of 5, reaching a pressure of about 12, with 2-3 liters of CO2 gas. ?The abdominal wall was tented out to avoid any injury to underlying structures, and the trocar was introduced into the abdomen with ease, flow turned up to 40, pressure set at 12. ??Three?additional 8 mm robotic ports were placed, along the same line across the abdomen: ?? right lateral abdomen, left mid abdomen, left lateral abdomen,?under direct visualization atraumatically.??An additional oceanographer assistant 8 mm port was placed in the RUQ.?The patient was placed into steep Trendelenberg. ?The DV5?robot was Docked from a side-dock approach, using 3 arms. ?During the dissection, monopolar scissors and bipolar [place]?forceps were used, and during suturing, these were replaced with 2 needle drivers. ?The [place] grasper was used at the 3rd arm for surgical assistance. ?The 4th port was for the surgical manager (passing sutures and suction / irrigation). ?At this point, I went to the robotic console to operate the robot.? ?The sigmoid was retracted, and the sacral promontory was identified, and the ureters were identifed lateral to the intended surgical planes.? First, the BSO was done, then the RSC was done. Both ovaries and fallopian tubes were identified. The right fallopian tube was grasped. Cautery was used on the right ovarian artery and vein and these were then cut. The tube and ovary were dissected off of the Right pelvic sidewall using cautery, with good hemostasis. The specimen was placed into the right lower quadrant. The same procedure was repeated on the left side. The Left tube and ovary specimen was also placed into the right lower quadrant, near the appendix. After the sacral colpopexy was completed, a 5 mm laparoscopic specimen bag was inserted through that port. Both tubes and ovaries were placed into that bag. The bag was pulled back out through the wound. The specimens were passed off the field. ? The bladder was dissected off the vagina for a distance of 4 cm, and the vagina was dissected off the posterior peritoneum, most of the way down the posterior vagina, approx 7 cm. ??The Tee Surgical Sacral Colpopexy tip with the Mima Arch was used to expose the vagina for dissection. ?Retrograde fill of the bladder facilitated the dissection. ?The peritoneum over the sacral promontory was incised and the dissection was carried down into the pelvis. ?The loose areolar connective tissue overlying the sacral promontory was dissected until the sacrum was clearly identified. ?The anterior arm of the Y-polypropylene mesh was fashioned as noted above, and sutured to the anterior vagina with several interrupted 2-0 vicryl sutures. ?The posterior arm of the mesh was fashioned as noted above, and sutured to the posterior vagina with several interrupted 2-0 vicryl sutures. ?The mesh tail was grasped to create a Y shape, cut to the appropriate length, and then attached to the sacral promontory in a tension-free manner, using 2 sutures of 2-0 Ethibond (permanent suture). The sacral peritoneum was closed over the mesh with a running 2-0 PDS / V-Lock suture, and then continued to close the peritoneum over the vaginal part of the mesh. I left the console and scrubbed and gowned and returned to the OR table. The robot was undocked. As noted above, the laparoscopic bag was inserted, the specimens were placed into the bag. The bag was removed from the abdomen. The ports were removed. ?All port sites were inspected for hemostasis, and pneumoperitoneum released. The skin incisions were reapproximated with 4-0 monocryl, and then dermabond was placed. ?Attention was turned to the remainder of the vagina where excellent apical support was appreciated. ?Cystourethroscopy was performed which revealed bilateral ureteral efflux of pyridium and no evidence of injury or suture material within the bladder urethra. The bladder was filled to 300 cc. A crede maneuver was done creating suprapubic pressure with obvious leakage of fluid from the urethra. Therefore stress incontinence was diagnosed. Therefore a sling was indicated With the Baker catheter in place, the anterior vaginal mucosa beneath and lateral to the urethra was injected with 10-20 cc of? 0.5% lidocaine / epinephrine 1:200,000.? A 2-3 cm midline incision was made at the level of the midurethra with a scapel. Metzenbaum scissors were used to dissect the vagina from the urethra and then create tunnels beneath the vaginal mucosa up toward the pubic bone on each side.? A marking pen was used to lydia the skin just above the pubic bone and 2 cm from the midline bilaterally, and two small 8-10 mm incisions were made on the suprapubic skin.? The trocar was passed from the right vaginal tunnel, behind the pubic bone, to the right suprapubic incision, and this was repeated on the left side.? The Baker catheter was removed, and cystoscopy was performed with a 70 degree lens. There was no trocar injury, and the bladder, ureters, and urethra were normal.? The Baker catheter was reinserted.? The sling was pulled into position in a tension-free manner, and a Karen clamp was easily passed between the sling and the urethra.? The plastic sheaths were removed to anchor the sling, and tension was checked again. Gel-Foam was placed into each sling tunnel for hemostasis. The ends of the sling were trimmed just below the skin, and the skin incisions were cleaned and closed with dermabond. The vaginal incision was closed with 2-0 vicryl in a running fashion. Sponge, needle and instrument count was correct.? The patient tolerated the procedure well and was taken to the recovery room in stable condition. Dale Owen MD UroGynecology [facility] Pelvic Reconstructive Surgery [place], [place] Applied: implant(s) (Victor Hugo Y mesh for the sacral colpopexy, TVT mid urethral sling)
== END 2025-03-12 16:42 | disposition home or self-care (01) ==
PROVIDERS: PCP Family Medicine; Referring Provider Family Medicine; Visit Provider Obstetrics & Gynecology Gynecology
PROC: 0USG4ZZ Reposition Vagina, Percutaneous Endoscopic Approach (ICD-10-PCS; CPT 57425; principal; 2025-03-12 09:15)
PROC: 0TSD0ZZ Reposition Urethra, Open Approach (ICD-10-PCS; CPT 57425; 2025-03-12 09:15)
DX: N99.3 Prolapse of vaginal vault after hysterectomy (principal); N36.41 Hypermobility of urethra; N39.46 Mixed incontinence; Z40.8 Encounter for other prophylactic surgery; Z87.891 Personal history of nicotine dependence; N83.8 Other noninflammatory disorders of ovary, fallopian tube and broad ligament
CPT/HCPCS: 57425; 58661; 57288; S2900; C1771; C1781; J0689; J1100; J1171; J1885; J2250; J2405; J2704; J3010; J3490; J7120

== ENCOUNTER 2025-03-18 18:22 | Emergency (ER) | payer OTHER, SELFPAY ==
[2022-12-15 06:42] VITALS: BMI 28.8
[2025-03-18 18:28] VITALS: BP 157/77; PULSE 107; RESP 18; TEMP 36.9; O2SAT 100; BMI 30.5
[2025-03-18 22:06] VITALS: PULSE 83; O2SAT 98
[2025-03-18 22:30] VITALS: PULSE 80; O2SAT 92
--- NOTE | 2025-03-18 23:00 | PC.NURSE ---
Pt lying in ED stretcher speaking with and engages appropriately with RN upon entry into exam room. Pt states increasing lower back pain x 2 days with mild radiation to abd, s/p banker mason surgery earlier in the week. Denies loss of bowel or bladder. CSM to lower extremities intact. Pt assisted to restroom via wheelchair by RN at this time, urine sample provided. Pt placed back in ED stretcher, connected to pulse ox and blood pressure monitors with alarms on and audible. VS stable at tis time. Continued plan of care discussed. No further requests or concerns at t his time. Call light within reach. warm blankets provided. remains at bedside. Dr. Braden in to examine pt at this time.
[2025-03-18 23:04] VITALS: BP 148/63; PULSE 84; RESP 22; O2SAT 97
--- NOTE | 2025-03-18 23:06 | ED_ITS ---
HPI - Back Pain/Injury General Chief Complaint: Back Pain/Injury Stated Complaint: PC ref, ab surgery mon, LBP since yest, get worse Time Seen by Provider: 03/18/25 22:40 Source: patient History of Present Illness HPI Narrative: 64-year-old female postop day 6 from prolapse bladder repair with mesh and sling, oophorectomy. Had been doing well postoperatively, yesterday started having low back pain increasing. History of chronic back pain, much worse than usual exacerbation low back pain symptoms. Denies painful or frequent urination. No fevers or chills. No cough or shortness of breath or chest pain. Related Data Home Medications ?Medication ?Instructions ?Recorded ?Confirmed fluticasone propionate 50 2 spray intranasal DAILY PRN 09/16/18 02/27/25 mcg/actuation nasal Allergy Symptoms spray,suspension rizatriptan 10 mg tablet See Rx Instructions PO .COMP ARCELIA 11/23/22 03/12/25 PRN Headache minoxidil 2.5 mg tablet 2.5 mg PO DAILY 01/09/2511/27 Previous Rx's ?Medication ?Instructions ?Recorded estradiol 0.01% (0.1 mg/gram) 1 g vaginal 2XW #42.5 gr ams 03/09/23 vaginal cream clobetasol 0.05 % scalp solution 1 applic topical BID #50 mL 10/26/23 clobetasol 0.05 % topical ointment 1 applic topical BI D #30 grams 10/26/23 desonide 0.05 % lotion 1 applic topical DAILY PRN f or 10/26/23 itch #59 mL diclofenac sodium 75 mg 75 mg PO BID #180 tabs 11/01 tablet,delayed release lamotrigine 50 mg tablet,extended 150 mg (3 x 50 mg) P O DAILY #270 12/13/24 release 24 hr tabs zolpidem 5 mg tablet 5 mg PO BEDTIME #30 tabs oxycodone 5 mg tablet 5 mg PO Q8H PRN pain #10 tab s 02/27/25 gabapentin 300 mg capsule 300 mg PO 3XD PRN hot flashe s #270 03/06/25 caps methocarbamol 500 mg tablet 500 mg PO TID 7 days #21 t abs 03/19/25 oxycodone-acetaminophen 5 mg-325 1 tab PO Q6H PRN pain #10 tabs 03/19/25 mg tablet Allergies Allergy/AdvReac Type Severity Reaction Status Date / Time latex (LATEX) AdvReac Mild IRRITATION Verified 03/18/25 18:28 TO HANDS Sulfa (Sulfonamide AdvReac Mild HIVES Verified 03/18/25 18:28 Antibiotics) (SULFA (SULFONAMIDE ANTIBIOTICS)) Patient History Medical History (Updated 03/19/25 @ 01:43 by Eladio Braden MD) Urethral hypermobility Vaginal vault prolapse Rectocele Prolapse of vaginal eng Partial tear of rotator cuff Shoulder impingement Arthritis of glenohumeral joint Posterior vaginal wall prolapse Anesthesia Normal colonoscopy (~2012) Surgical procedure planned (~2012) Migraines Shoulder pain (~2007) Back pain (~2006) Surgical History (Updated 03/19/25 @ 01:43 by Eladio Braden MD) S/P left unicompartmental knee replacement (10/09/24) S/P hip replacement (12/2022) Hx of cholecystectomy Hx of bladder repair surgery History of shoulder replacement History of prolapse of bladder Hx of cervical spinal arthrodesis Status post breast lumpectomy Status post hysterectomy Status post breast reduction Status post knee surgery History of carpal tunnel repair History of tonsillectomy Family History Father Age: 90 Emphysema/COPD Cancer Diabetes mellitus Heart disease Mother Age: 84 Diabetes mellitus Hypertension Grandmother Breast cancer Social History marital status: household members: spouse and children occupational status: employed alcohol intake: current substance use type: does not use alcohol intake frequency: a few times a week Exam Narrative Exam Narrative: GENERAL: Well-developed patient, in mild distress. HEAD: Atraumatic. Normocephalic. EYES: Pupils equal round and reactive. Extraocular motions intact. No scleral icterus. No injection or drainage. ENT: No obvious craniofacial trauma NECK: Trachea midline. Non tender CARDIOVASCULAR: Regular rate and rhythm without murmurs, gallops, or rubs. RESPIRATORY: Clear to auscultation. Breath sounds equal bilaterally. No wheezes, rales, or rhonchi. GASTROINTESTINAL: Well-healed port sites consistent with reported recent laparoscopic surgery, none with significant tenderness or redness, no bleeding or discharge from sites, abdomen otherwise nondistended without anterior tenderness, no guarding or rebound. Bowel tones unremarkable. EXTREMITIES: No edema or joint tenderness. NEURO: AOx3. Motor functions grossly nonfocal. SKIN: No rash or erythema of visible areas Initial Vital Signs Initial Vital Signs: Vital Signs Temperature 98.4 F 03/18/25 18:28 Pulse Rate 107 H 03/18/25 18:28 Respiratory Rate 18 03/18/25 18:28 Blood Pressure 157/77 H 03/18/25 18:28 Pulse Oximetry 100 03/18/25 18:28 Oxygen Delivery Method Room Air 03/18/25 18:28 Course Orders Ordered: ED Orders 03/18/25 22:35 Urine Microscopic Stat 03/18/25 23:05 Complete Blood Count AUTO DIFF Stat Comprehensive Metabolic Panel Stat Lipase Stat 03/18/25 23:12 CT abdomen pelvis w con Stat Discontinued Medications Hydromorphone HCl (Hydromorphone 1 Mg/Ml Syringe) 1 mg IV NOW ONE Stop: 03/18/25 23:13 Last Admin: 03/18/25 23:19 Dose: 1 mg Documented By: SUNNY Sodium Chloride (Normal Saline 0.9%) 1,000 mls @ 1,000 mls/hr IV BOLUS ONE Stop: 03/19/25 00:11 Last Infusion: 03/19/25 00:56 Dose: Infused Documented By: Admin: 03/18/25 23:19 Dose: 1,000 mls/hr Documented By: SUNNY Methocarbamol (Methocarbamol 500 Mg Tablet) 500 mg PO NOW ONE Stop: 03/19/25 01:40 Last Admin: 03/19/25 01:50 Dose: 500 mg Documented By: RYAN Ondansetron HCl (Ondansetron 4 Mg/2 Ml Inj) 4 mg IV NOW ONE Stop: 03/18/25 23:13 Last Admin: 03/18/25 23:19 Dose: 4 mg Documented By: SUNNY Oxycodone/Acetaminophen (Oxycodone/Apap 5/325 Prepack) 1 bottle MISC DIRECTED ONE Stop: 03/19/25 01:40 Last Admin: 03/19/25 01:50 Dose: 1 bottle Documented By: RYAN Vital Signs Vital signs: Vital Signs - 8 hr 03/18/25 22:06 03/18/25 22:30 03/18/25 23:04 Pulse Rate 83 80 84 Respiratory Rate 22 Blood Pressure Pulse Oximetry 98 92 97 Oxygen Delivery Method Room Air Oxygen Flow Rate 03/18/25 23:04 03/18/25 23:30 03/18/25 23:30 Pulse Rate 80 Respiratory Rate Blood Pressure 148/63 H 108/51 L Pulse Oximetry 97 Oxygen Delivery Method Room Air Oxygen Flow Rate 03/18/25 23:48 03/19/25 00:24 03/19/25 00:24 Pulse Rate 80 Respiratory Rate 14 Blood Pressure 128/61 Pulse Oximetry 86 L 97 Oxygen Delivery Method Room Air Nasal Cannula Oxygen Flow Rate 2 03/19/25 00:30 03/19/25 00:30 03/19/25 01:00 Pulse Rate 81 81 Respiratory Rate 16 Blood Pressure 124/63 Pulse Oximetry 92 93 Oxygen Delivery Method Nasal Cannula Oxygen Flow Rate 2 03/19/25 01:00 03/19/25 01:30 03/19/25 01:30 Pulse Rate 86 Respiratory Rate Blood Pressure 116/59 L 105/53 L Pulse Oximetry 94 Oxygen Delivery Method Oxygen Flow Rate 03/19/25 01:38 03/19/25 01:38 Pulse Rate 91 H Respiratory Rate Blood Pressure 119/59 L Pulse Oximetry 96 Oxygen Delivery Method Oxygen Flow Rate MDM - Back Pain/Injury Lab Data Attestation: I reviewed the patient's lab results. Lab results narrative: White blood cell count 8900, hemoglobin 13.6, platelets adequate. Glucose 107. Normal renal function, serum CO2, electrolytes. Liver functions and lipase normal. Urine dip negative. 03/18/25 23:05 03/18/25 23:05 Labs: Lab Results 03/18/25 03/18/25 Range/Units 22:35 23:05 WBC 8.9 (4.5-11.0) X10^3/uL RBC 4.56 (4.0-5.2) X10^6/uL Hgb 13.6 (12.0-16.0) g/dL Hct 40.3 (36-46) % MCV 88.4 (80-100) fL MCH 29.9 (26-34) PG MCHC 33.8 (30-36) % RDW 13.8 (11.6-14.8) % Plt Count 337 (150-400) X10^3/uL Neut % (Auto) 78.2 H (50-75) % Lymph % (Auto) 11.3 L (25-40) % [place] % (Auto) 3.8 (3-14) % Eos % (Auto) 4.8 H (2-4) % Baso % (Auto) 1.9 (0-2) % Neut # (Auto) 7000 (6984-3571) /uL Lymph # (Auto) 1000 L (2137-7310) /uL [place] # (Auto) 300 (0-900) /uL Eos # (Auto) 400 (0-450) /uL Baso # (Auto) 200 H (0-100) /uL Sodium 139 (137-145) mmol/L Potassium 3.9 (3.4-5.1) mmol/L Chloride 104 (98-107) mmol/L Carbon Dioxide 27 (22-32) mmol/L BUN 16 (7-17) mg/dL Creatinine 0.66 (0.52-1.04) mg/dL Estimated GFR > 60 (>60) mL/min BUN/Creatinine Ratio 24.2 H (6-22) Glucose 107 H (70-99) mg/dL Calcium 9.5 (8.4-10.2) mg/dL Total Bilirubin 0.4 (0.2-1.3) mg/dL AST 21 (14-36) IU/L ALT 19 (<35) IU/L Alkaline Phosphatase 70 (38-126) U/L Total Protein 7.8 (6.3-8.2) g/dL Albumin 4.6 (3.5-5.0) g/dL Globulin 3.2 (1.7-4.1) g/dL Albumin/Globulin Ratio 1.4 (1.0-2.8) Lipase 58 (23-300) U/L Urine RBC None seen (0-5/HPF) Urine WBC None seen (0-5/HPF) Ur Squamous Epith Cells 0-1 /hpf (0-5/HPF) Urine Bacteria None seen (None) Ur Culture Indicated? Cult not indicated Vol Urine Centrifuged 10ml (spun) Urine Dip Bedside Urine Glucose Negative Bedside Urine Bilirubin - Negative Bedside Urine Ketone - Negative Urine Specific [place] 1.010 Bedside Urine Occult Blood +/- Bedside Urine pH 7.0 Bedside Urine Protein - Negative Bedside Urine Urobilinogen - Negative Bedside Urine Nitrite - Negative Bedside Urine Leukocytes +/- [address] scan - abdomen/pelvis: Radiologist's Impression: [address] [address] [address] Scan Report Signed Patient: Shelby Chandler MR#: [id number] : 1960 Acct:[id number] Age/Sex: 64 / F Date of Service: 03/18/25 Loc: ED Accession Number: [id number] Procedure: CT abdomen pelvis w con Ordering Provider: Eladio Braden MD PROCEDURE: CT ABDOMEN PELVIS W CON INDICATIONS: 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 Coronal and sagittal reformats were performed. For radiation dose reduction, the following was used: automated exposure control, adjustment of mA and/or kV according to patient size. COMPARISON: None. FINDINGS: Image quality: Diagnostic. Lower Chest: Small hiatal hernia. Mild bibasilar atelectasis. ABDOMEN: Liver: No solid mass. Punctate right liver calcifications. Left liver cyst. Gallbladder: Cholecystectomy. Biliary ducts: No biliary dilation. Pancreas: No ductal dilation. Spleen: Size is within normal limits. Adrenal Glands: No adrenal nodules. Kidneys and Ureters: No hydronephrosis. No solid mass. No complex renal cystic lesion which requires follow up. Stomach and Bowel: Small hiatal hernia. Normal colonic caliber, without significant wall thickening. Colonic diverticulosis without evidence of acute diverticulitis. Peritoneum: Small volume intraperitoneal free air, likely postoperative. No significant free fluid or organized fluid collection. Ventral Wall: No significant ventral hernia. Abdominal Nodes: No retroperitoneal or mesenteric adenopathy by size criteria. Vessels: Aorta and inferior vena cava are normal in size. PELVIS: Pelvic Organs: Status post hysterectomy with fat stranding at the remnant vaginal cuff likely postoperative. No organized fluid collection. Bladder: No bladder wall thickening, accounting for underdistention. Intraluminal free air, likely secondary to recent catheterization. Pelvic Nodes: No enlarged lymph nodes. Miscellaneous: No inguinal hernias are seen. Bones: Right hip arthroplasty hardware, partially visualized. No aggressive osseous abnormality. Degenerative changes of the visualized spine most prominent at L2- L3, where there is moderate osseous spinal canal narrowing. Multilevel bony foraminal stenoses are present in the lumbar spine. There is mild retrolisthesis of L2 on L3 and L3 on L4, as well as trace anterolisthesis of L4 on L5. IMPRESSION: Status post hysterectomy with stranding at the remnant vaginal cuff, likely post operative. Small volume intraperitoneal free air is also likely post operative. No organized fluid collection. Intraluminal free air in the bladder, likely postoperative. No acute abnormality is identified in the abdomen or pelvis. Degenerative changes of the spine without acute osseous abnormality. Dictated by: Mynor Pérez M.D. on 03/19/2025 at 0:54 Approved by: Mynor Pérez M.D. on 03/19/2025 at 1:02 [facility] Narrative Medical decision making narrative: 64-year-old female postop day 6 from prolapsed bladder repair with mesh, bladder sling, oophorectomy. Has increasing low back pain since yesterday. Afebrile, sirs screen negative. No specific injury new activity recalled. No numbness or weakness to legs. Labs pending. IV Dilaudid/Zofran. Pain seems to be improved Lab data: White blood cell count 8900, hemoglobin 13.6, platelets adequate. Glucose 107. Normal renal function, serum CO2, electrolytes. Liver functions and lipase normal. Urine dip negative. CT abdomen and pelvis. IMPRESSION: Status post hysterectomy with stranding at the remnant vaginal cuff, likely post operative. Small volume intraperitoneal free air is also likely post operative. No organized fluid collection.Intraluminal free air in the bladder, likely postoperative.No acute abnormality is identified in the abdomen or pelvis.Degenerative changes of the spine without acute osseous abnormality. See radiology report. Consider low back pain due to her DJD, otherwise postoperative changes from recent reported laparoscopic guidance surgery noted, no obvious gross infection or active bleeding of any significance identified. Patient is symptomatically improved after IV analgesics. Refill of her postoperative oxycodone, follow up advised with her surgeon advised as planned. Has appointment with PCP on Wednesday in 2 days. Discharged home with family. Return precautions discussed. Discharge Plan Departure Patient Disposition: Home Clinical Impression: Low back pain, Degenerative joint disease (DJD) of lumbar spine, History of pelvic surgery Activity Restrictions/Additional Instructions: Status post pelvic surgery with prolapse bladder repair almost one-week ago last Wednesday, with mesh, bladder sling, also tube/ovary removal. Free of chronic low back pain. Not immediately uncomfortable with low back after surgery, which reportedly seemed to go well. Increasing low back pain of unclear cause. Screening labs unremarkable. CT scan abdomen and pelvis showed postoperative changes consistent with reported surgery, and multilevel degenerative arthritis of the spine. No acute changes identified, free air and scant fluid consistent with postoperative changes. Possible exacerbation of your low back pain from your recent surgery. Trial of muscle relaxant methocarbamol/Robaxin. Refill of your postoperative pain control medication oxycodone, prescription sent to your pharmacy, home pack dispensed for discharge. Follow up with your PCP scheduled on Wednesday tomorrow. Recheck earlier to this/nearest emergency department for any change worsening symptoms or any concerns prior. Prescriptions: New methocarbamol 500 mg tablet 500 mg PO TID 7 Days Qty: 21 0RF oxycodone-acetaminophen 5-325 mg tablet 1 tab PO Q6H PRN (Reason: pain) Qty: 10 0RF No Action fluticasone propionate 50 mcg/actuation spray,suspension 2 spray NASAL DAILY PRN (Reason: Allergy Symptoms) estradiol 0.01 % (0.1 mg/gram) cream 1 g vaginal 2XW Qty: 42.5 2RF clobetasol 0.05 % ointment 1 applic topical BID Qty: 30 0RF clobetasol 0.05 % solution 1 applic topical BID Qty: 50 0RF desonide 0.05 % lotion 1 applic topical DAILY PRN (Reason: for itch) Qty: 59 0RF diclofenac sodium 75 mg tablet,delayed release (DR/EC) 75 mg PO BID Qty: 180 3RF lamotrigine 50 mg tablet extended release 24hr 150 mg PO DAILY Qty: 270 3RF zolpidem 5 mg tablet 5 mg PO BEDTIME Qty: 30 2RF gabapentin 300 mg capsule 300 mg PO 3XD PRN (Reason: hot flashes) Qty: 270 1RF rizatriptan 10 mg tablet See Rx Instructions PO .COMPLEX PRN (Reason: Headache) Rx Instructions: take 1 tab at onset of headache; if no relief may repeat 1 tab in 2hr; max = 3 tabs/day (24hr) PO minoxidil 2.5 mg tablet 2.5 mg PO DAILY oxycodone 5 mg tablet 5 mg PO Q8H PRN (Reason: pain) Qty: 10 0RF Rx Instructions: postop med Referrals: Gemini Deleon MD [Primary Care Provider, Family Practice] Stand Alone Forms: Patient Portal/API
--- NOTE | 2025-03-18 23:12 | DI.CT.S_ITS ---
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 Coronal and sagittal reformats were performed. For radiation dose reduction, the following was used: automated exposure control, adjustment of mA and/or kV according to patient size. COMPARISON: None. FINDINGS: Image quality: Diagnostic. Lower Chest: Small hiatal hernia. Mild bibasilar atelectasis. ABDOMEN: Liver: No solid mass. Punctate right liver calcifications. Left liver cyst. Gallbladder: Cholecystectomy. Biliary ducts: No biliary dilation. Pancreas: No ductal dilation. Spleen: Size is within normal limits. Adrenal Glands: No adrenal nodules. Kidneys and Ureters: No hydronephrosis. No solid mass. No complex renal cystic lesion which requires follow up. Stomach and Bowel: Small hiatal hernia. Normal colonic caliber, without significant wall thickening. Colonic diverticulosis without evidence of acute diverticulitis. Peritoneum: Small volume intraperitoneal free air, likely postoperative. No significant free fluid or organized fluid collection. Ventral Wall: No significant ventral hernia. Abdominal Nodes: No retroperitoneal or mesenteric adenopathy by size criteria. Vessels: Aorta and inferior vena cava are normal in size. PELVIS: Pelvic Organs: Status post hysterectomy with fat stranding at the remnant vaginal cuff likely postoperative. No organized fluid collection. Bladder: No bladder wall thickening, accounting for underdistention. Intraluminal free air, likely secondary to recent catheterization. Pelvic Nodes: No enlarged lymph nodes. Miscellaneous: No inguinal hernias are seen. Bones: Right hip arthroplasty hardware, partially visualized. No aggressive osseous abnormality. Degenerative changes of the visualized spine most prominent at L2- L3, where there is moderate osseous spinal canal narrowing. Multilevel bony foraminal stenoses are present in the lumbar spine. There is mild retrolisthesis of L2 on L3 and L3 on L4, as well as trace anterolisthesis of L4 on L5. IMPRESSION: Status post hysterectomy with stranding at the remnant vaginal cuff, likely post operative. Small volume intraperitoneal free air is also likely post operative. No organized fluid collection. Intraluminal free air in the bladder, likely postoperative. No acute abnormality is identified in the abdomen or pelvis. Degenerative changes of the spine without acute osseous abnormality. Dictated by: Mynor Pérez M.D. on 03/19/2025 at 0:54 Approved by: Mynor Pérez M.D. on 03/19/2025 at 1:02
[2025-03-18] MEDS: ONDANSETRON 4 MG/2 ML INJ IV (23:19)
[2025-03-18] MEDS: SODIUM CHLORIDE 0.9% 1,000 ML 1000 ML IV (23:19)
[2025-03-18 23:20] LABS: Add Manual Diff / Slide Review NO; Hematocrit 40.3 % (36-46); Hemoglobin 13.6 g/dL (12.0-16.0); Lymphocytes Absolute Auto 1000 /uL (1100-4500); Mean Corpuscular HGB Conc 33.8 % (30-36); Mean Corpuscular Hemoglobin 29.9 PG (26-34); Mean Corpuscular Volume 88.4 fL (80-100); Platelet Count 337 X10^3/uL (150-400)
[2025-03-18 23:24] LABS: Alanine Aminotransferase 19 IU/L (<35); Albumin 4.6 g/dL (3.5-5.0); Albumin Globulin Ratio 1.4 (1.0-2.8); Alkaline Phosphatase 70 U/L (38-126); Blood Urea Nitrogen 16 mg/dL (7-17); Calcium 9.5 mg/dL (8.4-10.2); Carbon Dioxide 27 mmol/L (22-32); Chloride 104 mmol/L (98-107); Estimated Glomerular Filt Rate > 60 mL/min (>60); Globulin 3.2 g/dL (1.7-4.1); Glucose 107 mg/dL (70-99); HEMOLYSIS < 15 (0-50); Lipase 58 U/L (23-300); Potassium 3.9 mmol/L (3.4-5.1); Sodium 139 mmol/L (137-145); Total Protein 7.8 g/dL (6.3-8.2)
[2025-03-18 23:29] LABS: Culture Indicated Urine Cult Not Indicated
[2025-03-18 23:30] VITALS: BP 108/51; PULSE 80; O2SAT 97
[2025-03-18 23:48] VITALS: O2SAT 86
--- NOTE | 2025-03-18 23:59 | PC.NURSE ---
Pt to imaging via ED stretcher with staking technician
[2025-03-19 00:24] VITALS: BP 128/61; PULSE 80; RESP 14; O2SAT 97
[2025-03-19 00:30] VITALS: BP 124/63; PULSE 81; RESP 16; O2SAT 92
[2025-03-19 01:00] VITALS: BP 116/59; PULSE 81; O2SAT 93
--- NOTE | 2025-03-19 01:00 | PC.NURSE ---
Pt states pain was better but then became worse after moving to and from CT table
[2025-03-19 01:30] VITALS: BP 105/53; PULSE 86; O2SAT 94
[2025-03-19 01:38] VITALS: BP 119/59; PULSE 91; O2SAT 96
== END 2025-03-19 02:08 | disposition home or self-care (01) ==
PROVIDERS: Emergency Provider Emergency Medicine; PCP Family Medicine
DX: M47.816 Spondylosis without myelopathy or radiculopathy, lumbar region (principal); M54.50 Low back pain, unspecified; Z98.890 Other specified postprocedural states
CPT/HCPCS: 36415; 74177; 80053; 81003; 81015; 83690; 85025; 96374; 96375; 99284; J1171; J2405; J7030; Q9967

== ENCOUNTER → 2025-03-22 13:57 | Outpatient (CLI) | payer OTHER, SELFPAY ==
[2022-12-15 06:42] VITALS: BMI 28.8
--- NOTE | 2025-03-22 13:58 | DI.RAD.S_ITS ---
PROCEDURE: XR DEXA AXIAL SKELETON INDICATIONS: dexa COMPARISON: None. FINDINGS: Lumbar Spine: Bone mineral density 1.308 g/cm2, T score 2.4. Left Femoral Neck: Bone mineral density 0.793 g/cm2, T score -0.5. Left Hip: Bone mineral density 0.924 g/cm2, T score -0.1. Fracture Risk Calculation (when applicable): 10-year fracture risk of a major osteoporotic fracture 6.8 percent and of a hip fracture 0.3 percent. (T score greater or equal to -1.0 to: NORMAL) (T score from -1.1 to -2.4: OSTEOPENIA) (T score less than or equal to -2.5: OSTEOPOROSIS) IMPRESSION: Normal bone mineral density. Follow-up guidelines as follows: Osteoporosis: Consider a repeat DEXA and Vertebral Fracture Assessment (VFA) exam in 2 years or sooner if medically necessary, to reassess this patient's status. Osteopenia: Consider a repeat DEXA in 2-3 years to reassess this patient's status, or if there is a new clinical indication. Normal: Consider a repeat DEXA in 5 years or sooner, or if there is a new clinical indication. All treatment decisions require clinical judgment and consideration of individual patient factors, including patient preferences, comorbidities, previous drug use, risk factors not captured in the FRAX model (e.g., frailty, falls, vitamin D deficiency, increased bone turnover, interval significant decline in bone density ) and possible under- or over-estimation of fracture risk by FRAX. In addition, the NOF Guide recommends that FDA-approved medical therapies be considered in postmenopausal women and men age >= 50 years with a: * Hip or vertebral (clinical or morphometric) fracture * T-score of <=-2.5 at the spine or hip * Ten-year fracture probability by FRAX of >= 3% for hip fracture or >=20% for major osteoporotic fracture. Dictated by: Berto Baker M.D. on 03/23/2025 at 10:18 Approved by: Berto Baker M.D. on 03/23/2025 at 10:18
== END ==
LOC: RAD 13:58
PROVIDERS: PCP Family Medicine; Referring Provider Family Medicine; Visit Provider Family Medicine
DX: Z78.0 Asymptomatic menopausal state (principal); Z82.62 Family history of osteoporosis; Z90.710 Acquired absence of both cervix and uterus
CPT/HCPCS: 77080